=== PATIENT | male | born 1940 | race Caucasian/White ===

== ENCOUNTER 2016-10-10 12:29 | Observation (INO) ==
[2016-10-10] MEDS ORDERED: ASPIRIN 325 MG TABLET PO STA (12:55)
--- NOTE | 2016-10-10 12:59 | EKG Report ---
Stationary ECG Study [facility] ER Test Date: 10/10/2016 12:37:24 PM Pat Name: MAGALI NÚÑEZ Department: Room: Gender: M Study Assistant: : 1940 Requested by: Catalino Rose Order Number: [id number] Reading MD: HANANE ROSE Intervals [place] Rate: 92 P: 169 AL: 175 QRS: 174 QRSD: 155 T: 8 QT: 371 QTc: 421 Interpretive Statements ATRIAL FLUTTTER ABNORMAL RIGHT AXIS DEVIATION NONSPECIFIC INTRAVENTRICULAR CONDUCTION BLOCK Electronically Signed On 10-16-16 10:55:47 CDT by HANANE ROSE [email or web address]
--- NOTE | 2016-10-10 13:15 | Emergency Department Note ---
Arina Cortes Hilary, am scribing for, and in the presence of, Catalino Osborne MD 13: 06. [place] Cortes James D, MD, personally performed the services described in this documentation, ascribed by Regi Santa in my presence, and it is both accurate and complete 315 . Arrival - Arrival Chief Complaint: Chest Pain Stated Complaint: chest pain ED Nursing Triage Note: c/o stabbing pain in lt side of chest around breast. + sob. +productive cough. pt denies pain in triage. pt was dcd from here last sunday for pneumonia. pt had a check up with heart dr about 1100 today Mode of Arrival: Wheelchair Limitations: No Limitations Source: Patient, RN Notes Reviewed - History of Present Illness HPI Narrative: Pt is a 76 y/o male presenting to the ED with c/o stabbing pain on his left side of chest that is now resolved. Pt states the pain lasted about 30-45 min and was non radiating. Pt confirms chronic SOB, cough, chest pain, leg swelling but denies pain, nausea, diaphoresis or abdominal pain. Pt has a PMHx of HTN, DC , Cardia dysrhythmia, CAD, Cardiovascular problems (hypotension), COPD, lung CA , was discharged from hospital 10/04/16 days ago for Pneumonia. No other complaints or problems stated in the ED. Negative PET scan 2 weeks ago, Pt had a check up with his heart Dr about 1100 today. Onset (ago): minute(s) Consistency: now resolved Allergies/Adverse Reactions: Allergies Allergy/AdvReac Type Severity Reaction Status Date / Time budesonide [From Symbicort] Allergy Severe HIVES Verified 09/14/16 06:08 ceftriaxone [From Rocephin] Allergy Severe ANAPHYLAXIS Verified 09/14/16 06:08 Formoterol [From Symbicort] Allergy Severe HIVES Verified 09/14/16 06:08 sulfamethoxazole Allergy Severe HIVES Verified 09/14/16 06:08 [From Bactrim] trimethoprim [From Bactrim] Allergy Severe HIVES Verified 09/14/16 06:08 Home Medications: Home Medications Medication Instructions Recorded Confirmed Type Omeprazole [Prilosec] 20 mg PO BID 03/31/15 10/10/16 History Magnesium Oxide 400 mg PO BID #60 tablet 04/06/15 10/10/16 Rx Metoprolol Succinate 100 mg PO DAILY 02/01/16 10/10/16 History dilTIAZem HCl [Tiazac] 300 mg PO DAILY 02/01/16 10/10/16 History Aspirin EC Tab 81 mg PO DAILY tablet 02/03/16 10/10/16 Rx Clopidogrel [Plavix] 75 mg PO DAILY #30 tablet 02/03/16 10/10/16 Rx Tiotropium Inhalation [Spiriva 18 mcg INH DAILY 02/15/16 10/10/16 History Handihaler] Atorvastatin Calcium 40 mg PO DAILY 05/08/16 10/10/16 History Cholecalciferol (Vitamin D3) 2,000 unit PO DAILY 09/13/16 10/10/16 History [Vitamin D3] Fluticasone Propionate 2 spray BOTH NARES DAILY 09/13/16 10/10/16 History [Fluticasone 50 mcg Nasal [place]] Levothyroxine Tab [Synthroid Tab] 125 mcg PO DAILY 09/13/16 10/10/16 History Multivitamin [Multivitamins] 1 each PO DAILY 09/13/16 10/10/16 History Doxycycline Hyclate 100 mg PO BID #20 capsule 10/04/16 10/10/16 Rx Gabapentin Cap/Tab [Neurontin 600 mg PO TID #90 tablet 10/04/16 10/10/16 Rx Cap/Tab] predniSONE TAB [PredniSONE] 20 mg PO DAILY #7 tablet 10/04/16 10/10/16 Rx rifAMPin [Rifampin] 150 mg PO BID #20 capsule 10/04/16 10/10/16 Rx Review of System - Review of System 12 point system: reviewed and no additional remarkable complaints except as stated - Review of System Constitutional: Absent: diaphoresis, fever Respiratory: Present: cough, respiratory distress (SOB) Cardiovascular: Present: chest pain Gastrointestinal: Absent: abdominal pain Musculoskeletal: Absent: arm pain Medical,Surgical,& Family Hx - Medical History Cardio: History of: Cardiac Dysrhythmia (A FIB), CAD (diffuse small vessel coronary artery disease), Hypertension, DC (02/01/2016), Cardiovascular Problems (Hypotension) No history of: Aneurysm, Congenital Heart Disease, CHF, Pacemaker, PVD, Valvular Heart Disease Neurology: No history of: Brain Aneurysm, Cerebral Hemorrhage, Cerebrovascular Accident , Cerebral Palsy, Dementia, Migraine, Multiple Sclerosis, Parkinson's Disease, Seizures, TIA, Neurologocal Cancer HEENT: History of: Eye Problem (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 LEFT LEG.) Other: History of: Anesthesia Reactions (PT STATES TROUBLE WAKING IN THE PAST.) , Anaphylaxis (ROCEPHIN), Cancer (LUNG), MRSA (RT HAND , SINUS) Comment Only: Miscellaneous Medical Problems (SINUS SURGERY X 3, UVULA SURGERY.) - Surgical History Cardiac Surgeries: Sugical HX of: Cardiac Catheterization (stent x1 DR JASON. LAST VISIT 11/2015. STENT 02/01/2016. DR JASON.) Thoracic Surgeries: Patient denies;: Kidney (Renal Surgery), Lithotripsy, Nephrectomy, Organ Transplant Neurologic Surgeries: Patient denies: Brain Aneurysm, Cerebral Hemorrhage Abdominal Surgeries: Surgical HX of: Colonoscopy Patient denies: Abdominal Surgery Reproductive Surgeries: Patient denies;: Cystoscopy, Genitourinary Surgery, Prostate Surgery Orthopedic Surgeries: Surgical HX of;: Orthopedic Surgery (RT ELBOW SURGERY. RT HAND TENDON SURGERY.) - Family History Family History: Reports;: Family Cancer (MOTHER- BREAST CA AND KIDNEY CA), Family Diabetes (FATHER, BROTHER, SISTER), Family Heart Disease (FATHER), Family Hypertension (FATHER), Family Stroke (FATHER-TIA) - Social History Smoking Status: Former smoker Frequency of Alcohol Use: None Type of Drug Use: None Exam Physical Examination: GENERAL: This is a well-nourished, well-developed male in no apparent distress. VITAL SIGNS: Temperature: 98 Pulse: Respiratory: 24 Blood Pressure: 103/ 77 O2SAT: 99 HEENT: Head is normocephalic and atraumatic. Pupils are equally round and reactive to light. Extraocular movement are intact. Oropharynx is benign with moist mucous membranes. NECK: Neck is soft and supple without tenderness. There are no masses. There is no lymphadenopathy. LUNGS: Lungs are clear to auscultation bilaterally. Chest rises symmetrically. There is no chest wall tenderness. CV: Heart is regular rate and rhythm without murmurs, rubs, or gallops. ABDOMEN:Abdomen is soft, non-tender to palpation. There are no abnormal masses palpated. There is no organomegaly. Bowel sounds are present and active. SKIN: Skin is warm and dry. No rash. EXTREMITIES: Patient has full range of motion without tenderness. There is no pedal edema. NEUROLOGIC: Awake, alert, and oriented x4. Cranial nerves II through XII are grossly intact. There are no motorsensory deficits. PSYCHIATRIC: Normal affect. Normal mood. Vital Signs: Vital Signs Temperature 98.0 F 10/10/16 12:32 Respiratory Rate 22 10/10/16 14:34 Blood Pressure 103/77 10/10/16 12:32 Course - Consultations Consultation #1: Discussed with cardiology. Patient will be admitted to their service. Dr. Ochoa will assume patient's care upon [facility] to the [facility]. Initial orders written for him. Time: 15:41 Results - Labs CBC & BMP: 10/10/16 13:51 10/10/16 13:51 Lab Results: I have reviewed the patients labs Labs: Laboratory Tests 10/10/16 10/10/16 13:51 13:51 WBC 12.5 H RBC 4.43 Hgb 13.9 L Hct 41.9 L Neut % (Auto) 78.1 H Lymph % (Auto) 13.9 L Neut # (Auto) 9.8 H Sodium 137 Potassium 3.5 Chloride 96 L Carbon Dioxide 35 H BUN 40 H Creatinine 1.70 H BUN/Creatinine Ratio 23.00 H Glucose 124 H Total Bilirubin 1.30 H Total Protein 5.5 L Albumin 2.6 L Albumin/Globulin Ratio 0.8 L Laboratory Tests 10/10/16 13:51 Troponin I < 0.015 - EKG EKG results: interpreted by ERMD - Impressions EKG: Atrial flutter with ventricular rate of 92, atrial rate of 300, right bundle branch block, nonspecific ST-T wave changes. - Diagnostic Findings Procedure: Chest x-ray: image reviewed by me (Bullous emphysema with chronic scarring. Residual irregular parenchymal abnormalities noted in the left upper lobe patient with known carcinoma on the lung. Reduced infiltration in both mid to lower lung zones which can be seen with imporving pneumonia.), CT - chest: image reviewed by me (CT chest PA gram: No large pulmonary embolus. Infiltrates in the bases bilaterally.), Ultrasound: report reviewed by me ( Venous Doppler lower extremities: No evidence of DVT.) Disposition Clinical Impression: Atrial flutter, Chest pain, History of lung cancer, Coronary artery disease, History of pneumonia Case discussed with: patient Disposition: Still a Patient Condition: Stable Time of Disposition: 13:16
--- NOTE | 2016-10-10 13:58 | XRay Report ---
XR chest 2V Date: 10/10/2016 12:55 PM History: Chest pain Comparison: 10/04/2016 Technique: PA and lateral chest Findings: The heart remains normal in size with uncoiling of the aorta. Persistent evidence of bullous emphysema with reduced parenchymal findings in both mid to lower lung zones. Smaller right pleural effusion. On the lateral film, residual irregular parenchymal findings noted in the left upper lobe. Stable mediastinum with degenerative changes. Impression: Bullous emphysema with chronic scarring. Residual irregular parenchymal abnormalities noted in the left upper lobe patient with known carcinoma on the lung. Reduced infiltration in both mid to lower lung zones which can be seen with improving pneumonia. PROCEDURE INTERPRETED AT [facility] DEPARTMENT OF RADIOLOGY Final Report Signed by: Dr. Danisha Babin
[2016-10-10 14:03] LABS: Basophils % 0.2 % (0.0-0.8); Eosinophils # 0.2 10*3/uL (0.0-0.87); Eosinophils % 1.5 % (0.00-10.9); Hematocrit 41.9 VOL% (42.0-52.0); Hemoglobin 13.9 GM/DL (14.0-18.0); Immature Granulocytes % 1.5 %; Immature Granulocytes Absolute 0.19 #; Lymphocytes # 1.7 10*3/uL (1.4-4.0); Lymphocytes % 13.9 % (21.2-54.2); Mean Corpuscular HGB Conc 33.2 GM/DL (32-36); Mean Corpuscular Hemoglobin 31 PG (27-34); Mean Corpuscular Volume 94.6 FL (87-102); Mean Platelet Volume 11.1 FL (9.6-12.0); Monocytes # 0.6 10*3/uL (0.11-0.8); Monocytes % 4.8 % (1.7-12.7); Neutrophils # 9.8 10*3/uL (1.4-7.4); Neutrophils % 78.1 % (38.7-73.9); Platelet Count 199 T/CUMM (130-400); Red Blood Count 4.43 MC/CUMM (3.8-5.5); Red Cell Distribution Width 16.5 % (9.3-17.3); White Blood Count 12.5 T/CUMM (4-12)
[2016-10-10] MEDS ORDERED: ASPIRIN 325 MG TABLET ONE (14:18)
[2016-10-10 14:19] LABS: PT Patient Result 11.1 SECS; Partial Thromboplastin Time 26.7 SECS (0-40)
--- NOTE | 2016-10-10 14:20 | Ultrasound Report ---
Exam: Bilateral lower extremity venous Doppler ultrasound Comparison: 05/08/2016 Clinical history: Bilateral lower extremity edema, history of lung cancer Technique: Duplex scan of the lower extremity veins using B-mode/grayscale scaled imaging and Doppler spectral analysis and color flow. Findings: Major venous structures of the lower extremities demonstrate a normal course and caliber. Normal color-flow study and spectral analysis. There is normal compression and augmentation of bilateral common femoral, superficial femoral and popliteal veins. The proximal bilateral greater saphenous veins appear to be patent. Impression: No evidence to suggest deep venous thrombosis within either lower extremity. Ultrasound images were captured and stored. PROCEDURE INTERPRETED AT [facility] DEPARTMENT OF RADIOLOGY Final Report Signed by: Dr. Danisha Babin
[2016-10-10 14:34] LABS: Albumin 2.6 G/DL (3.4-5.0); Bilirubin,Total 1.3 MG/DL (0.2-1.0); Calcium 8.9 MG/DL (8.5-10.1); Osmolality,Calculated 283.8 MOS/KG (273-304); Potassium 3.5 MMOL/L (3.5-5.1); Total Protein 5.5 G/DL (6.4-8.3)
--- NOTE | 2016-10-10 16:11 | CT Report ---
EXAM: CT chest PE study DATE: October 10, 2016 COMPARISON: CT chest with contrast September 29, 2016, PET CT September 25, 2016 REASON: Chest pain, history of lung cancer TECHNIQUE: Axial images of the chest were obtained after administration of 80 cc of Omnipaque 350 intravenous contrast. Coronal/sagittal reformatted images and coronal/sagittal MIP images were also acquired. The study was performed per pulmonary embolism protocol. Total DLP was 395.5 mGy*cm. FINDINGS: Pulmonary arteries: There is no evidence of pulmonary embolism through the segmental pulmonary arteries. Vascular/heart: The ascending thoracic aorta is borderline prominent, measuring 3.9 cm in diameter. However, it appears stable. No definite aortic dissection is seen, but evaluation is limited by poor opacification of the aorta. The heart is upper normal in size. No pericardial effusion is seen. Calcified plaque is noted at the coronary arteries. Lymph nodes: There are calcified mediastinal and hilar lymph nodes. The mediastinal and hilar lymph nodes appear stable. Chest wall: Unremarkable. Lungs: The patient has a history of lung cancer. There are stable irregular opacities within the anterior aspect of the left upper lobe. This has not significantly changed since August 29, 2016 and could represent treated lung cancer in this patient with a history of lung cancer. There are patchy opacities within the right middle lobe, which are not seen on the prior CT of August 29, 2016. This is concerning for pneumonia. There also opacities within the basilar portion of the left lower lobe, which have improved. This could represent atelectasis, scarring and improving pneumonia. Additional mild scattered opacities are seen within both lungs and likely represent atelectasis and scarring. There is severe emphysema. No pneumothorax or pleural effusion is identified. Bones: No acute osseous process is seen. Upper abdomen: There are several left renal cysts, which are similar to before. No acute process is identified within the upper abdomen. IMPRESSION: 1. No evidence of pulmonary embolism. 2. There are again irregular opacities within the anterior aspect of the left upper lobe, which have not significantly changed since August 29, 2016. The patient has a history of lung cancer, and this could represent treated lung cancer. Please see the recent PET/CT for further details. 3. There are patchy opacities within the right middle lobe, which are not seen on the prior CT of August 29, 2016. This likely represents pneumonia. However, follow-up is recommended to confirm resolution. 4. There are mild opacities within the basilar portion of the left lower lobe. These opacities have improved since August 29, 2016. This could represent atelectasis, scarring and improving pneumonia. However, a neoplastic process is difficult to exclude in this region. Follow-up is recommended. 5. Scattered atelectasis and scarring within both lungs and severe emphysema. PROCEDURE INTERPRETED AT [facility] DEPARTMENT OF RADIOLOGY Final Report Signed by: Dr. Jorge Montenegro
--- NOTE | 2016-10-10 16:35 | EKG Report ---
Stationary ECG Study [facility] ER Test Date: 10/10/2016 4:34:23 PM Pat Name: MAGALI NÚÑEZ Department: Room: 277 Gender: M Vat Overhauler: : 1940 Requested by: Catalino Rose Order Number: [id number] Reading MD: HANANE ROSE Intervals [place] Rate: 79 P: 50 NH: 210 QRS: 254 QRSD: 154 T: 28 QT: 385 QTc: 420 Interpretive Statements SINUS RHYTHM WITH PROLONGED NH INTERVAL POSSIBLE LEFT ATRIAL ENLARGEMENT MARKED RIGHT AXIS DEVIATION RIGHT BUNDLE BRANCH BLOCK Electronically Signed On 10-16-16 11:13:34 CDT by HANANE ROSE [id number]
[2016-10-10] MEDS ORDERED: MAGNESIUM SULF RIDER 4 GM in PREMIX 1 EACH IV PRN (16:57)
[2016-10-10] MEDS ORDERED: NITROGLYCERIN SL 0.4 MG TABLET SL PRN (16:57)
[2016-10-10] MEDS ORDERED: NITROGLYCERIN 2% OINT 1 INCH/GM PACK TOP STA (16:57)
[2016-10-10] MEDS ORDERED: MAGNESIUM SULF RIDER 2 GM in PREMIX 1 EACH IV PRN (16:57)
--- NOTE | 2016-10-10 17:02 | Cardiology History & Physical ---
<Shelby Johnson E - Last Filed: 10/10/16 17:15> Assessment and Plan - Time spent with patient Time spent with patient: Greater than 30 minutes (due to assessment, plan, and documentation) (1) Chest pain Status: Acute Assessment and plan: SEE PLAN OF CARE LISTED BELOW. Current Visit: Yes (2) History of pneumonia Status: Acute Assessment and plan: SEE PLAN OF CARE LISTED BELOW. Current Visit: Yes (3) Atrial flutter Status: Acute Assessment and plan: SEE PLAN OF CARE LISTED BELOW. Current Visit: Yes (4) Coronary artery disease Status: Chronic Assessment and plan: SEE PLAN OF CARE LISTED BELOW. Current Visit: Yes (5) History of lung cancer Status: Chronic Assessment and plan: SEE PLAN OF CARE LISTED BELOW. Current Visit: Yes (6) Atrial fibrillation Status: Chronic Assessment and plan: SEE PLAN OF CARE LISTED BELOW. Current Visit: No Qualifiers: Atrial fibrillation type: persistent Qualified Code(s): I48.1 - Persistent atrial fibrillation (7) Chronic obstructive pulmonary disease Status: Chronic Assessment and plan: SEE PLAN OF CARE LISTED BELOW. Current Visit: No (8) Dyslipidemia Status: Chronic Assessment and plan: SEE PLAN OF CARE LISTED BELOW. Current Visit: No (9) Renal insufficiency Status: Chronic Assessment and plan: SEE PLAN OF CARE LISTED BELOW. Current Visit: No (10) Hypothyroidism Status: Chronic Assessment and plan: SEE PLAN OF CARE LISTED BELOW. Current Visit: No History of Present Illness Chief complaint: chest pain History of present illness: NURSE PRACTITIONER PER DIEM: DR. HENDRIX PCP: none PATIENT IS BEING SEE IN THE EMERGENCY ROOM, #11. Mr. Ceron is a 76 year old male with a known history of coronary artery disease, dyslipidemia, hypertension, right bundle branch block, lung cancer, hypothyroidism, and unspecified atrial fibrillation. He is status post NSTEMI 02/02/16 with stent placement to the mid LAD. At the time of his last heart catheterization, he was noted to have an infrarenal abdominal aortic aneurysm measuring 29.6mm in its greatest dimension; he also had a patent stent to the mid circumflex, and ischemic cardiomyopathy with ejection fraction 45%. Mr. Ceron presented to the emergency department shortly after lunch today for complaints of chest pain. He was seen in clinic this morning by Dr. Hendrix and at that time, he was in his usual state of health and denied any recent episodes of chest discomfort. He was just discharged from the hospital last 10/04/16 after being hospitalized for 8 days for treatment of pneumonia. Mr. Ceron tells me that he was sitting in the car waiting on his to finish shopping when he had a sudden onset of left sided chest pain. He describes this as "sharp and stabbing" and lasting approximately 30-45 minutes. It did not radiate. He tells me he has chronic shortness of breath and is on home oxygen but he noted no associated symptoms of palpitations, diaphoresis, nausea, vomiting, dizziness, lightheadedness, or syncope. He tells me the pain subsided considerably prior to arrival at the hospital but has since come and gone a couple of times. He can identify no aggravating or alleviating factors. He denies missing any doses of his aspirin or Plavix. He also reports dizzy spells yesterday, bilateral lower extremity edema, and an occasional productive cough of dark yellow sputum. He bruises easily and his noted to have a large area of ecchymosis over his LLQ. He is currently breathing comfortably on O2 via NBP and denies pain at the time of exam. He tells me he thinks this feels somewhat similar to the pain he had in January prior to his previous stent. Initial troponin was negative with creatinine 1.7. Subsequent troponin was within normal limits. His WBC is elevated at 12.5 after being 10.7 at discharge on 10/04/16. He was initially in atrial flutter on arrival but has since converted to normal sinus rhythm and is noted to have a chronic right bundle branch block with first degree AV block. Dr. Santiago to follow with further plan and addendum. ASSESSMENT/PLAN: 1. CHEST PAIN - Atypical in nature. Describes pain as sharp and stabbing with no significant associated symptoms. Patient has chronic SOB and wears home O2. He reports his breathing did not seem to change much during his chest pain episode. Admit to telemetry unit to rule out myocardial infarction. Patients last cath was January 2016 and he received stent to mLAD. We will keep him NPO after midnight for possible stress test or heart cath in the morning. First 2 sets of troponins have been unremarkable. Will follow trend and make a decision in the morning as to how to proceed. 2. HISTORY OF PNEUMONIA - Continue current therapy. 3. ATRIAL FLUTTER - EKG on admission showed atrial flutter, has since converted to normal sinus rhythm. 4. CORONARY ARTERY DISEASE - He is status post NSTEMI 02/02/16 with stent placement to the mid LAD. At the time of his last heart catheterization, he was noted to have an infrarenal abdominal aortic aneurysm measuring 29.6mm in its greatest dimension; he also had a patent stent to the mid circumflex, and ischemic cardiomyopathy with ejection fraction 45%. 5. HISTORY OF LUNG CANCER - Followed by Dr. Mckinney. He is to follow up with Dr. Mckinney in approximately 3 months. PET scan done September 2016 revealed no obvious evidence of persistent or recurrent malignancy. 6. HISTORY OF ATRIAL FIBRILLATION - Currently in normal sinus rhythm. Will monitor. Has not been chronically anticoagulated. Will need anticoagulation for stroke prevention. Will discuss with Dr. Santiago. 7. COPD - Continue home medications and O2 PRN. Will monitor. 8. DYSLIPIDEMIA - Continue statin. 9. RENAL INSUFFICIENCY - Creatinine 1.7. 10. HYPOTHYROIDISM - Continue synthroid. Home Medications Medication Instructions Recorded Confirmed Type Omeprazole [Prilosec] 20 mg PO BID 03/31/15 10/10/16 History Magnesium Oxide 400 mg PO BID #60 tablet 04/06/15 10/10/16 Rx Metoprolol Succinate 100 mg PO DAILY 02/01/16 10/10/16 History dilTIAZem HCl [Tiazac] 300 mg PO DAILY 02/01/16 10/10/16 History Clopidogrel [Plavix] 75 mg PO DAILY #30 tablet 02/03/16 10/10/16 Rx Tiotropium Inhalation [Spiriva 18 mcg INH DAILY 02/15/16 10/10/16 History Handihaler] Atorvastatin Calcium 40 mg PO DAILY 05/08/16 10/10/16 History Cholecalciferol (Vitamin D3) 2,000 unit PO DAILY 09/13/16 10/10/16 History [Vitamin D3] Fluticasone Propionate 2 spray BOTH NARES DAILY 09/13/16 10/10/16 History [Fluticasone 50 mcg Nasal [place]] Levothyroxine Tab [Synthroid Tab] 125 mcg PO DAILY 09/13/16 10/10/16 History Multivitamin [Multivitamins] 1 each PO DAILY 09/13/16 10/10/16 History Doxycycline Hyclate 100 mg PO BID #20 capsule 10/04/16 10/10/16 Rx Gabapentin Cap/Tab [Neurontin 600 mg PO TID #90 tablet 10/04/16 10/10/16 Rx Cap/Tab] predniSONE TAB [PredniSONE] 20 mg PO DAILY #7 tablet 10/04/16 10/10/16 Rx rifAMPin [Rifampin] 150 mg PO BID #20 capsule 10/04/16 10/10/16 Rx Aspirin EC Tab 81 mg PO BEDTIME 10/10/16 10/10/16 History Allergies Allergy/AdvReac Type Severity Reaction Status Date / Time budesonide [From Symbicort] Allergy Severe HIVES Verified 09/14/16 06:08 ceftriaxone [From Rocephin] Allergy Severe ANAPHYLAXIS Verified 09/14/16 06:08 Formoterol [From Symbicort] Allergy Severe HIVES Verified 09/14/16 06:08 sulfamethoxazole Allergy Severe HIVES Verified 09/14/16 06:08 [From Bactrim] trimethoprim [From Bactrim] Allergy Severe HIVES Verified 09/14/16 06:08 Review of systems: - Constitutional: Present: fatigue, As per HPI. Absent: anorexia, chills, daytime sleepiness, excessive sweating, fever(s), frequent falls, headache(s), increased appetite, lethargy, malaise, night sweats, stops breathing during sleep, weakness, weight gain, weight loss. - EENT Eyes: Present: As per HPI. Absent: blurry vision, diplopia, loss of vision Ears: Present: As per HPI. Absent: decreased hearing, ear discharge, ear pain Nose, mouth and throat: Present: As per HPI. Absent: dysphagia, epistaxis, headache(s), hoarseness, lip swelling, nasal congestion, neck mass, neck pain, sinus pressure, sore throat, throat swelling, tongue swelling, vertigo - Cardiovascular: Present: chest pain at rest, dyspnea, dyspnea on exertion, edema, as per HPI. Absent: chest pain with activity, claudication, diaphoresis , radiating jaw, neck or arm pain, lightheadedness, orthopnea, palpitations, PND - Respiratory: Present: dyspnea, dyspnea on exertion, cough, as per HPI. Absent : hemoptysis, wheezing, snoring, pain on inspiration - Gastrointestinal: Present: constipation, As per HPI. Absent: abdominal pain, bloating, change in bowel habits, diarrhea, heartburn, hematemesis, hematochezia , loose stools, melena, nausea, vomiting - Genitourinary: Present: As per HPI. Absent: difficulty urinating, dysuria, flank pain, hematuria, nocturia, urinary frequency, urinary incontinence - Musculoskeletal: Present: As per HPI. Absent: arthralgias, back pain, joint swelling, limited range of motion, muscle cramps, muscle weakness, myalgias - Neurological: Present: dizziness, As per HPI. Absent: abnormal gait, abnormal speech, behavioral changes, confusion, convulsions, disequilibrium, focal weakness, frequent falls, headache(s), memory loss, numbness, paresthesias, radicular pain, syncope, tremor(s) - Psychiatric: Present: As per HPI. Absent: anxiety, confusion, depression, panic attacks - Endocrine: Present: As per HPI. Absent: cold intolerance, fatigue, heat intolerance, polydipsia, polyphagia - Hematologic/Lymphatic: Present: easy bleeding, easy bruising, As per HPI. 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 LEFT LEG.) Other: History of: Anesthesia Reactions (PT STATES TROUBLE WAKING IN THE PAST.) , Anaphylaxis (ROCEPHIN), Cancer (LUNG), MRSA (RT HAND , SINUS) Comment Only: Miscellaneous Medical Problems (SINUS SURGERY X 3, UVULA SURGERY.) - Surgical History Cardiac Surgeries: Sugical HX of: Cardiac Catheterization (stent x1 DR HENDRIX. LAST VISIT 11/2015. STENT 02/01/2016. DR HENDRIX.) Thoracic Surgeries: Patient denies;: Kidney (Renal Surgery), Lithotripsy, Nephrectomy, Organ Transplant Neurologic Surgeries: Patient denies: Brain Aneurysm, Cerebral Hemorrhage Abdominal Surgeries: Surgical HX of: Colonoscopy Patient denies: Abdominal Surgery Reproductive Surgeries: Patient denies;: Cystoscopy, Genitourinary Surgery, Prostate Surgery Orthopedic Surgeries: Surgical HX of;: Orthopedic Surgery (RT ELBOW SURGERY. RT HAND TENDON SURGERY.) - Family History Family History: Reports;: Family Cancer (MOTHER- BREAST CA AND KIDNEY CA), Family Diabetes (FATHER, BROTHER, SISTER), Family Heart Disease (FATHER), Family Hypertension (FATHER), Family Stroke (FATHER-TIA) - Social History Smoking Status: Former smoker Frequency of Alcohol Use: None Type of Drug Use: None Marital Status: Lives With:: Spouse Functional capacity: independent ambulation Cardiology Physical Exam - Constitutional Vitals: Vital Signs Temp Pulse Resp BP Pulse Ox 97.5 F L 75 22 113/76 100 10/10/16 16:26 10/10/16 16:26 10/10/16 16:26 10/10/16 16:26 10/10/16 16:26 Exam: General appearance: Pleasant and cooperative. Overweight, no acute distress. - Head Head exam: Present: normal inspection, normocephalic, atraumatic. Absent: hematoma, laceration - Eye Eye exam: Present: EOMI. Absent: conjunctival injection, nystagmus, periorbital swelling, scleral icterus, laceration to eyelids - ENT ENT exam: Present: normal exam, normal external ear exam - Neck Neck exam: Present: normal inspection. Absent: lymphadenopathy, meningismus, tenderness, thyromegaly - Respiratory Respiratory exam: Present: clear to auscultation bilaterally. Absent: accessory muscle use, chest wall tenderness - Cardiovascular Cardiovascular exam: Present: regular rate and rhythm. Absent: carotid bruit, gallop, JVD, rubs, murmur - GI/Abdominal GI/Abdominal exam: Present: normal bowel sounds, soft. Absent: distended, firm , guarding, hernia, mass, tenderness, rebound. - Extremities Exam Extremities exam: Present: normal inspection, normal capillary refill. Upper extremity pulses 2+. Lower extremity pulses 2+. 2-3+ pitting edema to BLE. Absent: calf tenderness -Musculoskeletal Exam Musculoskeletal: Present: No Fluid Collection, No Pain, Normal Range of Motion - Back Exam Back exam: Present: normal inspection. Absent: muscle spasm, vertebral tenderness - Neurological Exam Neurological exam: Present: alert, oriented X3, grossly intact without resting or essential tremor - Psychiatric Psychiatric exam: Present: normal affect, normal mood - Skin Skin exam: Present: normal color, warm, dry, intact, ecchymosis to LLQ. Absent : cyanosis, diaphoretic, rash, urticaria Result/EKG - Labs CBC & BMP: 10/10/16 13:51 10/10/16 13:51 Lab Results: I have reviewed the past 24 hour labs - EKG EKG results: interpreted by me, sinus rhythm (right bundle branch block with 1st degree AVB ) <Nikhil Santiago - Last Filed: 10/10/16 17:38> History of Present Illness History of present illness: Mr. Ceron is a 76 year old male Cardiology Physical Exam - Constitutional Vitals: Vital Signs Temp Pulse Resp BP Pulse Ox 97.1 F L 76 18 125/77 100 10/10/16 16:59 10/10/16 16:59 10/10/16 16:59 10/10/16 16:59 10/10/16 16:59 Intake and Output 10/10/16 10/10/16 10/10/16 07:59 15:59 23:59 Other: Weight 87.09 kg Patient Weight 10/10/16 23:59 Weight 87.09 kg Result/EKG - Labs CBC & BMP: 10/10/16 13:51 10/10/16 13:51
[2016-10-10] MEDS: ENOXAPARIN 100 MG/ML SYRINGE SUBCUT SCH (17:16)
[2016-10-10 18:49] LABS: Troponin I Only 0.015 NG/ML (0.00-0.045)
[2016-10-10] MEDS: IPRATROPIUM 500 MCG/2.5 ML NEB RESP TX SCH (20:45)
[2016-10-10] MEDS ORDERED: RIFAMPIN 150 MG PO SCH (21:00)
[2016-10-10] MEDS: DOXYCYCLINE HYCLATE 100 MG CAPSULE PO SCH (21:55)
[2016-10-10] MEDS: PANTOPRAZOLE 40 MG TABLET PO SCH (21:55)
[2016-10-10] MEDS: GABAPENTIN 600 MG TABLET PO SCH (21:55)
[2016-10-10] MEDS: AMIODARONE 200 MG TABLET PO SCH (21:56)
[2016-10-10] MEDS: MAGNESIUM OXIDE 400 MG TABLET PO SCH (21:56)
[2016-10-11 01:11] LABS: Troponin I Only 0.016 NG/ML (0.00-0.045)
[2016-10-11 04:51] LABS: Basophils % 0.1 % (0.0-0.8); Eosinophils # 0.1 10*3/uL (0.0-0.87); Eosinophils % 0.7 % (0.00-10.9); Hematocrit 35.5 VOL% (42.0-52.0); Hemoglobin 11.9 GM/DL (14.0-18.0); Immature Granulocytes % 1.5 %; Immature Granulocytes Absolute 0.13 #; Lymphocytes # 1.4 10*3/uL (1.4-4.0); Lymphocytes % 16.8 % (21.2-54.2); Mean Corpuscular HGB Conc 33.5 GM/DL (32-36); Mean Corpuscular Hemoglobin 32 PG (27-34); Mean Corpuscular Volume 94.9 FL (87-102); Mean Platelet Volume 11.1 FL (9.6-12.0); Monocytes # 0.5 10*3/uL (0.11-0.8); Monocytes % 5.7 % (1.7-12.7); Neutrophils # 6.3 10*3/uL (1.4-7.4); Neutrophils % 75.2 % (38.7-73.9); Platelet Count 159 T/CUMM (130-400); Red Blood Count 3.74 MC/CUMM (3.8-5.5); Red Cell Distribution Width 16.6 % (9.3-17.3); White Blood Count 8.4 T/CUMM (4-12)
[2016-10-11] MEDS: ENOXAPARIN 100 MG/ML SYRINGE SUBCUT SCH (05:09)
[2016-10-11 05:42] LABS: Risk Ratio 2.69; VLDL CHOLESTEROL 22.8 MG/DL
[2016-10-11 05:50] LABS: Albumin 2.2 G/DL (3.4-5.0); Bilirubin,Total 0.8 MG/DL (0.2-1.0); Calcium 8.3 MG/DL (8.5-10.1); Free T4 (Free Thyroxine) 0.9 NG/DL (0.76-1.46); Osmolality,Calculated 283.4 MOS/KG (273-304); Potassium 4.1 MMOL/L (3.5-5.1); Thyroid Stimulating Hormone 2.05 uIU/ml (0.358-3.74); Total Protein 4.5 G/DL (6.4-8.3)
[2016-10-11] MEDS ORDERED: IPRATROPIUM 500 MCG/2.5 ML NEB RESP TX SCH (07:00)
[2016-10-11] MEDS: IPRATROPIUM 500 MCG/2.5 ML NEB RESP TX SCH ×2 (07:29→11:34)
[2016-10-11 07:45] VITALS: BP 144/70
[2016-10-11] MEDS ORDERED: LEVOTHYROXINE 125 MCG TABLET PO SCH (09:00)
[2016-10-11] MEDS ORDERED: ATORVASTATIN 80 MG TABLET PO SCH (09:00)
[2016-10-11] MEDS ORDERED: ASPIRIN 325 MG TABLET PO SCH (09:00)
[2016-10-11] MEDS ORDERED: CLOPIDOGREL 75 MG TABLET PO SCH (09:00)
[2016-10-11] MEDS ORDERED: predniSONE 20 MG TABLET PO SCH (09:00)
[2016-10-11] MEDS ORDERED: FLUTICASONE 50 MCG NASAL SPRAY 16 GM BOTTLE BOTH NARES SCH (09:00)
[2016-10-11] MEDS ORDERED: DILTIAZEM CD 300 MG CAPSULE PO SCH (09:00)
[2016-10-11] MEDS ORDERED: METOPROLOL SUCCINATE XL 100 MG TABLET PO SCH (09:00)
[2016-10-11] MEDS: CHOLECALCIFEROL 1,000 UNIT TABLET PO SCH ×2 (09:35→10:03)
[2016-10-11] MEDS: MULTIVITAMIN (CENTRUM) TABLET PO SCH ×2 (09:36→10:03)
[2016-10-11] MEDS: DOXYCYCLINE HYCLATE 100 MG CAPSULE PO SCH (09:36)
[2016-10-11] MEDS: AMIODARONE 200 MG TABLET PO SCH (09:36)
[2016-10-11] MEDS: MAGNESIUM OXIDE 400 MG TABLET PO SCH (09:36)
[2016-10-11] MEDS: GABAPENTIN 600 MG TABLET PO SCH (09:37)
[2016-10-11] MEDS: APIXABAN 5 MG TABLET PO SCH ×3 (09:39→10:03)
[2016-10-11] MEDS: PANTOPRAZOLE 40 MG TABLET PO SCH (09:40)
--- NOTE | 2016-10-11 10:43 | Discharge Summary ---
<Shelby Johnson Tonya - Last Filed: 10/11/16 11:14> Hospital Course - Hospital Course Hospital Course: CREDIT RISK ANALYST: DR. HENDRIX PCP: none Mr. Ceron is a 76 year old male with a known history of coronary artery disease, dyslipidemia, hypertension, right bundle branch block, lung cancer, hypothyroidism, and unspecified atrial fibrillation. He is status post NSTEMI 02/02/16 with stent placement to the mid LAD. At the time of his last heart catheterization, he was noted to have an infrarenal abdominal aortic aneurysm measuring 29.6mm in its greatest dimension; he also had a patent stent to the mid circumflex, and ischemic cardiomyopathy with ejection fraction 45%. He presented to the emergency room yesterday afternoon for complaints of chest pain. He was just discharged last Sunday after being hospitalized for 8 days for treatment of pneumonia. His pain was atypical in nature and he described it as sharp and stabbing. He had no radiation or associated symptoms. He does have some chronic shortness of breath. He has had 3 sets of negative troponins and no acute EKG changes. He has been noted to have recurrent atrial flutter/fibrillation. He had atrial flutter upon arrival but is now in normal sinus rhythm. We have discontinued his aspirin and started him on Eliquis 5 mg p.o. twice daily in addition to his Plavix to reduce his risk of cardioembolic events. He has also had no recent bleeding but may have had remote GI bleed. TSH and free T4 are normal. He was also started on amiodarone to try and prevent recurrence of his atrial flutter/fibrillation. These changes have been explained to the patient. He has had no recurrent episodes of chest discomfort. He declines stress testing at this time and is very anxious to be discharged home. At this time, he is able to be discharged to follow-up with Dr. Hendrix within 1 week with a CMP, CBC, EKG. At the time of discharge, his vital signs are stable. - Time spent with patient Time with patient DS: Greater than 30 minutes (Due to discussion with patient about further evaluation, assessment, plan, and documentation.) Diagnosis - Discharge Diagnosis (1) Chest pain Status: Resolved (2) History of pneumonia Status: Acute (3) Atrial flutter Status: Acute (4) Coronary artery disease Status: Chronic (5) History of lung cancer Status: Chronic (6) Atrial fibrillation Status: Chronic (7) Chronic obstructive pulmonary disease Status: Chronic (8) Dyslipidemia Status: Chronic (9) Renal insufficiency Status: Chronic (10) Hypothyroidism Status: Chronic Specialty Discharge - Follow Up or Referrals Follow up with: Johnny Hendrix MD [Physician] - 10/24/16 3:30 pm (Be there at 3:00 p.m. for lab work. ) Discharge Plan - Discharge Data Disposition: Disch To Home/Self Care Condition at Discharge: Stable Discharge Diet: heart healthy Activity: resume usual activities as tolerated Hygiene: no restrictions Weight Bearing at Discharge: full weight bearing Contact your physician if you experience:: fever over 101, Difficulty voiding, Redness or swelling, Nausea/Vomiting, Shortness of breath, Bleeding, pain uncontrolled by pain medications - Discharge Medications New Apixaban [Eliquis] 5 mg PO BID #60 tablet Amiodarone Tab [Cordarone Tab] 200 mg PO BID #60 tablet Continue Omeprazole [Prilosec] 20 mg PO BID Magnesium Oxide 400 mg PO BID #60 tablet dilTIAZem HCl [Tiazac] 300 mg PO DAILY Metoprolol Succinate 100 mg PO DAILY Clopidogrel [Plavix] 75 mg PO DAILY #30 tablet Tiotropium Inhalation [Spiriva Handihaler] 18 mcg INH DAILY Atorvastatin Calcium 40 mg PO DAILY Doxycycline Hyclate 100 mg PO BID #20 capsule Gabapentin Cap/Tab [Neurontin Cap/Tab] 600 mg PO TID #90 tablet predniSONE TAB [PredniSONE] 20 mg PO DAILY #7 tablet Levothyroxine Tab [Synthroid Tab] 125 mcg PO DAILY Fluticasone Propionate [Fluticasone 50 mcg Nasal [place]] 2 spray BOTH NARES DAILY Cholecalciferol (Vitamin D3) [Vitamin D3] 2,000 unit PO DAILY Multivitamin [Multivitamins] 1 each PO DAILY rifAMPin [Rifampin] 150 mg PO BID #20 capsule Discontinued Aspirin EC Tab 81 mg PO BEDTIME - Follow Up or Referral Follow Up: Johnny Hendrix MD [Physician] - 10/24/16 3:30 pm (Be there at 3:00 p.m. for lab work. ) - Forms/Instructions Instructions: Amiodarone (By mouth), Apixaban (By mouth) Exam - Constitutional Vitals: Period Temp Pulse Resp BP Sys/[place] Pulse Ox Last 24 Hr 97 F-98.1 F 69-81 17-22 113-144/67-78 95-100 Exam: General appearance: Pleasant and cooperative. Overweight, no acute distress. - Head Head exam: Present: normal inspection, normocephalic, atraumatic. Absent: hematoma, laceration - Eye Eye exam: Present: EOMI. Absent: conjunctival injection, nystagmus, periorbital swelling, scleral icterus, laceration to eyelids - ENT ENT exam: Present: normal exam, normal external ear exam - Neck Neck exam: Present: normal inspection. Absent: lymphadenopathy, meningismus, tenderness, thyromegaly - Respiratory Respiratory exam: Present: clear to auscultation bilaterally. Absent: accessory muscle use, chest wall tenderness - Cardiovascular Cardiovascular exam: Present: regular rate and rhythm. Absent: carotid bruit, gallop, JVD, rubs, murmur - GI/Abdominal GI/Abdominal exam: Present: normal bowel sounds, soft. Absent: distended, firm , guarding, hernia, mass, tenderness, rebound. - Extremities Exam Extremities exam: Present: normal inspection, normal capillary refill. Upper extremity pulses 2+. Lower extremity pulses 2+. 2-3+ pitting edema to BLE. Absent: calf tenderness -Musculoskeletal Exam Musculoskeletal: Present: No Fluid Collection, No Pain, Normal Range of Motion - Back Exam Back exam: Present: normal inspection. Absent: muscle spasm, vertebral tenderness - Neurological Exam Neurological exam: Present: alert, oriented X3, grossly intact without resting or essential tremor - Psychiatric Psychiatric exam: Present: normal affect, normal mood - Skin Skin exam: Present: normal color, warm, dry, intact, ecchymosis to LLQ. Absent : cyanosis, diaphoretic, rash, urticaria Discharge Results Labs on day of discharge: Labs from last 24 hours 10/11/16 10/11/16 10/11/16 04:37 04:37 04:37 WBC 8.4 D RBC 3.74 L Hgb 11.9 L D Hct 35.5 L MCV 94.9 MCH 32 MCHC 33.5 RDW 16.6 Plt Count 159 D MPV 11.1 Neut % (Auto) 75.2 H Lymph % (Auto) 16.8 L Grand % (Auto) 5.7 Eos % (Auto) 0.7 Baso % (Auto) 0.1 Neut # (Auto) 6.3 Lymph # (Auto) 1.4 Grand # (Auto) 0.5 Eos # (Auto) 0.1 Baso # (Auto) 0.0 Immature Gran % 1.5 Nucleated RBC % 0.0 Immature Gran # 0.13 Nucleated RBCs # 0.00 Sodium 140 Potassium 4.1 Chloride 99 Carbon Dioxide 35 H Anion Gap 10.1 BUN 30 H D Creatinine 1.40 H GFR Calculation 58 BUN/Creatinine Ratio 21.00 H Glucose 79 Calculated Osmolality 283.4 Calcium 8.3 L Total Bilirubin 0.80 AST 23 ALT 25 Alkaline Phosphatase 83 Total Creatine Kinase CK-MB (CK-2) Troponin I Total Protein 4.5 L Albumin 2.2 L Globulin 2.3 Albumin/Globulin Ratio 0.9 L Triglycerides 114 Cholesterol 121 LDL Cholesterol 59.0 VLDL Cholesterol 22.8 HDL Cholesterol 45 Heart Disease Risk Ratio 2.69 Free T4 0.90 TSH 3rd Generation 2.050 10/11/16 10/10/16 00:10 18:11 WBC RBC Hgb Hct MCV MCH MCHC RDW Plt Count MPV Neut % (Auto) Lymph % (Auto) Grand % (Auto) Eos % (Auto) Baso % (Auto) Neut # (Auto) Lymph # (Auto) Grand # (Auto) Eos # (Auto) Baso # (Auto) Immature Gran % Nucleated RBC % Immature Gran # Nucleated RBCs # Sodium Potassium Chloride Carbon Dioxide Anion Gap BUN Creatinine GFR Calculation BUN/Creatinine Ratio Glucose Calculated Osmolality Calcium Total Bilirubin AST ALT Alkaline Phosphatase Total Creatine Kinase 36 L D 48 CK-MB (CK-2) 2.0 2.2 Troponin I 0.016 0.015 Total Protein Albumin Globulin Albumin/Globulin Ratio Triglycerides Cholesterol LDL Cholesterol VLDL Cholesterol HDL Cholesterol Heart Disease Risk Ratio Free T4 TSH 3rd Generation DS: Provider Date of admission: 10/10/16 15:33 Primary care physician: Shree Fernández MD Attending physician on admission: Chandler Garces Discharging clinician: MARLI Milner Expected date of discharge: 10/11/16 <Kasi Ochoa - Last Filed: 10/11/16 14:05> Hospital Course - Hospital Course Hospital Course: Patient is personally interviewed and examined by me this morning. The chart was reviewed. I discussed this case with Shelby Johnson FORENSIC CHEMIST. I agree with the assessment and evaluation planned. The patient's symptomatology certainly does not seem to be cardiac. His ECGs and cardiac enzymes unremarkable. Lungs these findings it is unlikely his symptoms are cardiac in nature. He refuses to do a cardiac perfusion study which I don't necessarily notice needed. Certainly his symptoms are not such that he needs cardiac catheterization. He will be discharged which he is eager to do so. He agrees to return though if he has further symptomatology. Patient is thus discharged with outpatient follow-up.
== END 2016-10-11 11:42 | disposition home or self-care (01) ==
LOC: N.ED 12:29 → N.EDINP 12:29 → N.TELES 15:51
PROVIDERS: ADMIT Internal Medicine Cardiovascular Disease; ATTEND Internal Medicine Cardiovascular Disease

== ENCOUNTER 2018-12-20 14:02 | Inpatient (IN) ==
[2018-12-20] MEDS ORDERED: ONDANSETRON 4 MG/2 ML VIAL ONE (14:17)
[2018-12-20] MEDS ORDERED: ONDANSETRON 4 MG/2 ML VIAL IV STA (14:17)
[2018-12-20] MEDS ORDERED: MORPHINE 4 MG/1 ML VIAL IV PRN (15:55)
[2018-12-20] MEDS ORDERED: ACETAMINOPHEN 325 MG TABLET PO PRN (15:55)
[2018-12-20] MEDS ORDERED: ALBUTEROL/IPRATROPIUM 3 ML NEB RESP TX PRN (15:55)
[2018-12-20] MEDS ORDERED: BISACODYL 5 MG TABLET PO PRN (15:55)
[2018-12-20] MEDS: LACTATED RINGERS 1,000 ML IV SCH (18:48)
[2018-12-20] MEDS: LEVOFLOXACIN INJ 750 MG in PREMIX 1 EACH IV SCH (18:48)
[2018-12-20] MEDS: ALBUTEROL/IPRATROPIUM 3 ML NEB RESP TX SCH (19:31)
[2018-12-20] MEDS ORDERED: LACTATED RINGERS 1,000 ML IV ONE (20:00)
[2018-12-20 20:31] LABS: Basophils # 0.1 10*3/uL (0.0-0.2); Basophils % 1.5 % (0.0-0.8); Eosinophils # 0.2 10*3/uL (0.0-0.87); Eosinophils % 2.7 % (0.00-10.9); Hematocrit 40.1 VOL% (42.0-52.0); Hemoglobin 12.9 GM/DL (14.0-18.0); Immature Granulocytes % 0.4 %; Immature Granulocytes Absolute 0.03 #; Lymphocytes # 3.1 10*3/uL (1.4-4.0); Lymphocytes % 46.3 % (21.2-54.2); Mean Corpuscular HGB Conc 32.2 GM/DL (32-36); Mean Corpuscular Volume 99.3 FL (87-102); Mean Platelet Volume 10.6 FL (9.6-12.0); Monocytes % 8.9 % (1.7-12.7); Neutrophils % 40.2 % (38.7-73.9); Platelet Count 257 T/CUMM (130-400); Red Blood Count 4.04 MC/CUMM (3.8-5.5); Red Cell Distribution Width 13.7 % (9.3-17.3); White Blood Count 6.8 T/CUMM (4-12)
[2018-12-20 20:50] LABS: Albumin 3.6 G/DL (3.4-5.0); Bilirubin,Total 2.5 MG/DL (0.2-1.0); Calcium 9.9 MG/DL (8.5-10.1); Osmolality,Calculated 288.8 MOS/KG (273-304)
[2018-12-20] MEDS: ALUMINUM/MAGNES/SIMETH MAX STR 30 ML UDCUP PO PRN (22:32)
[2018-12-21] MEDS: ALBUTEROL/IPRATROPIUM 3 ML NEB RESP TX SCH ×4 (00:55→19:51)
[2018-12-21 02:58] LABS: Apearance,Urine CLEAR (Clear); Bilirubin,Urine Negative (Negative); Blood, Urine Negative (Negative); Glucose,Urine (UA) Negative (Negative); Hyaline Casts,Urine 3 /LPF (0-3); Ketones,Urine Negative (Negative); Mucus,Urine Occasional /LPF (Occasional); Nitrite,Urine Negative (Negative); Protein,Urine 30 MG/DL; RBC,Urine 3 /HPF (0-4); Sperm,Urine Occasional /HPF (Negative); Urine Color Amber (Yellow); Urine Specific Gravity 1.026 (1.001-1.035); WBC,Urine 7 /HPF (0-6)
[2018-12-21 04:59] LABS: Basophils % 0.3 % (0.0-0.8); Eosinophils # 0.5 10*3/uL (0.0-0.87); Eosinophils % 4.8 % (0.00-10.9); Hematocrit 34.5 VOL% (42.0-52.0); Hemoglobin 11.5 GM/DL (14.0-18.0); Immature Granulocytes % 0.5 %; Immature Granulocytes Absolute 0.05 #; Lymphocytes # 1.5 10*3/uL (1.4-4.0); Lymphocytes % 15.3 % (21.2-54.2); Mean Corpuscular HGB Conc 33.3 GM/DL (32-36); Mean Corpuscular Volume 104.9 FL (87-102); Mean Platelet Volume 11.4 FL (9.6-12.0); Monocytes % 6.3 % (1.7-12.7); Neutrophils % 72.8 % (38.7-73.9); Platelet Count 167 T/CUMM (130-400); Red Blood Count 3.29 MC/CUMM (3.8-5.5); Red Cell Distribution Width 13.4 % (9.3-17.3); White Blood Count 9.8 T/CUMM (4-12)
[2018-12-21 05:29] LABS: Albumin 2.4 G/DL (3.4-5.0); Calcium 8.4 MG/DL (8.5-10.1); Osmolality,Calculated 284.3 MOS/KG (273-304); Total Protein 6.1 G/DL (6.4-8.3)
[2018-12-21] MEDS: ONDANSETRON 4 MG/2 ML VIAL IV PRN ×2 (07:28→16:50)
[2018-12-21] MEDS: ENOXAPARIN 40 MG/0.4 ML SYRINGE SUBCUT SCH (09:40)
[2018-12-21] MEDS: PANTOPRAZOLE 40 MG TABLET PO SCH (09:40)
[2018-12-21] MEDS: ALUMINUM/MAGNES/SIMETH MAX STR 30 ML UDCUP PO PRN ×2 (10:33→20:53)
[2018-12-21] MEDS: LACTATED RINGERS 1,000 ML IV SCH (11:22)
[2018-12-21] MEDS: LEVOFLOXACIN INJ 750 MG in PREMIX 1 EACH IV SCH (17:24)
[2018-12-22] MEDS: LACTATED RINGERS 1,000 ML IV SCH ×2 (00:15→13:35)
[2018-12-22] MEDS: ALBUTEROL/IPRATROPIUM 3 ML NEB RESP TX SCH ×4 (00:50→19:09)
[2018-12-22] MEDS: ALUMINUM/MAGNES/SIMETH MAX STR 30 ML UDCUP PO PRN ×2 (02:25→21:49)
[2018-12-22 04:24] LABS: Basophils % 0.2 % (0.0-0.8); Eosinophils # 0.3 10*3/uL (0.0-0.87); Eosinophils % 3.4 % (0.00-10.9); Hematocrit 31.5 VOL% (42.0-52.0); Hemoglobin 10.5 GM/DL (14.0-18.0); Immature Granulocytes % 0.3 %; Immature Granulocytes Absolute 0.03 #; Lymphocytes # 1.1 10*3/uL (1.4-4.0); Lymphocytes % 12.5 % (21.2-54.2); Mean Corpuscular HGB Conc 33.3 GM/DL (32-36); Mean Corpuscular Volume 104.3 FL (87-102); Mean Platelet Volume 10.9 FL (9.6-12.0); Monocytes % 8.4 % (1.7-12.7); Neutrophils % 75.2 % (38.7-73.9); Platelet Count 148 T/CUMM (130-400); Red Blood Count 3.02 MC/CUMM (3.8-5.5); Red Cell Distribution Width 13.2 % (9.3-17.3); White Blood Count 8.7 T/CUMM (4-12)
[2018-12-22 04:43] LABS: Albumin 2.6 G/DL (3.4-5.0); Calcium 8.5 MG/DL (8.5-10.1); Osmolality,Calculated 277.5 MOS/KG (273-304); Total Protein 5.8 G/DL (6.4-8.3)
[2018-12-22] MEDS: ONDANSETRON 4 MG/2 ML VIAL IV PRN ×2 (06:15→21:50)
[2018-12-22] MEDS: ENOXAPARIN 40 MG/0.4 ML SYRINGE SUBCUT SCH (08:17)
[2018-12-22] MEDS: PANTOPRAZOLE 40 MG TABLET PO SCH ×2 (08:17→21:49)
[2018-12-22] MEDS: METOPROLOL SUCCINATE XL 50 MG TABLET PO SCH (09:30)
[2018-12-22] MEDS ORDERED: PROMETHAZINE 25 MG/1 ML VIAL IM PRN (09:47)
[2018-12-22] MEDS ORDERED: FUROSEMIDE 20 MG TABLET PO PRN (11:25)
[2018-12-22] MEDS ORDERED: NITROGLYCERIN SL 0.4 MG TABLET SL PRN (11:25)
[2018-12-22] MEDS ORDERED: POLYETHYLENE GLYCOL POWDER 17 GM PACK PO PRN (11:25)
[2018-12-22] MEDS ORDERED: ALBUTEROL 2.5 MG/3 ML NEB RESP TX PRN (13:00)
[2018-12-22] MEDS ORDERED: IPRATROPIUM 500 MCG/2.5 ML NEB RESP TX SCH ×2 (15:00→19:00)
[2018-12-22] MEDS: GABAPENTIN 600 MG TABLET PO SCH ×2 (15:12→21:49)
[2018-12-22] MEDS: MORPHINE 4 MG/1 ML VIAL IV PRN ×2 (16:05→21:44)
[2018-12-22] MEDS: LEVOFLOXACIN INJ 750 MG in PREMIX 1 EACH IV SCH (17:16)
[2018-12-22] MEDS: MAGNESIUM OXIDE 400 MG TABLET PO SCH (21:49)
[2018-12-23] MEDS: ALBUTEROL/IPRATROPIUM 3 ML NEB RESP TX SCH ×4 (00:13→19:13)
[2018-12-23 05:34] LABS: Basophils % 0.4 % (0.0-0.8); Eosinophils # 0.4 10*3/uL (0.0-0.87); Eosinophils % 6.1 % (0.00-10.9); Hematocrit 34.8 VOL% (42.0-52.0); Hemoglobin 11.3 GM/DL (14.0-18.0); Immature Granulocytes % 0.4 %; Immature Granulocytes Absolute 0.03 #; Lymphocytes % 14.5 % (21.2-54.2); Mean Corpuscular HGB Conc 32.5 GM/DL (32-36); Mean Corpuscular Volume 105.8 FL (87-102); Mean Platelet Volume 11.1 FL (9.6-12.0); Monocytes % 8.7 % (1.7-12.7); Neutrophils % 69.9 % (38.7-73.9); Platelet Count 149 T/CUMM (130-400); Red Blood Count 3.29 MC/CUMM (3.8-5.5); Red Cell Distribution Width 13.1 % (9.3-17.3); White Blood Count 6.7 T/CUMM (4-12)
[2018-12-23] MEDS: LACTATED RINGERS 1,000 ML IV SCH ×2 (05:45→20:57)
[2018-12-23] MEDS: LEVOTHYROXINE 112 MCG TABLET PO SCH (05:45)
[2018-12-23 06:03] LABS: Albumin 2.5 G/DL (3.4-5.0); Calcium 8.9 MG/DL (8.5-10.1); Osmolality,Calculated 274.5 MOS/KG (273-304); Total Protein 5.9 G/DL (6.4-8.3)
[2018-12-23] MEDS: PANTOPRAZOLE 40 MG TABLET PO SCH ×3 (09:03→20:57)
[2018-12-23] MEDS: FERROUS SULFATE 325 MG TABLET PO SCH (09:03)
[2018-12-23] MEDS: MULTIVITAMIN (CENTRUM) TABLET PO SCH (09:03)
[2018-12-23] MEDS: ATORVASTATIN 40 MG TABLET PO SCH (09:03)
[2018-12-23] MEDS: ENOXAPARIN 40 MG/0.4 ML SYRINGE SUBCUT SCH (09:04)
[2018-12-23] MEDS: MAGNESIUM OXIDE 400 MG TABLET PO SCH ×2 (09:04→20:57)
[2018-12-23] MEDS: CHOLECALCIFEROL 1,000 UNIT TABLET PO SCH (09:04)
[2018-12-23] MEDS: GABAPENTIN 600 MG TABLET PO SCH ×3 (09:04→20:57)
[2018-12-23] MEDS: METOPROLOL SUCCINATE XL 50 MG TABLET PO SCH (09:05)
[2018-12-23] MEDS: MORPHINE 4 MG/1 ML VIAL IV PRN (10:44)
[2018-12-23] MEDS: FLUTICASONE 50 MCG NASAL SPRAY 16 GM BOTTLE BOTH NARES SCH (10:50)
[2018-12-23] MEDS: LEVOFLOXACIN INJ 750 MG in PREMIX 1 EACH IV SCH (17:25)
[2018-12-24] MEDS: ALBUTEROL/IPRATROPIUM 3 ML NEB RESP TX SCH ×4 (00:08→19:06)
[2018-12-24] MEDS: LEVOTHYROXINE 112 MCG TABLET PO SCH (05:31)
[2018-12-24 05:57] LABS: Basophils % 0.4 % (0.0-0.8); Eosinophils # 0.4 10*3/uL (0.0-0.87); Eosinophils % 5.8 % (0.00-10.9); Hematocrit 38.7 VOL% (42.0-52.0); Hemoglobin 12.6 GM/DL (14.0-18.0); Immature Granulocytes % 0.6 %; Immature Granulocytes Absolute 0.04 #; Lymphocytes # 1.1 10*3/uL (1.4-4.0); Lymphocytes % 15.9 % (21.2-54.2); Mean Corpuscular HGB Conc 32.6 GM/DL (32-36); Mean Corpuscular Volume 105.2 FL (87-102); Mean Platelet Volume 11.3 FL (9.6-12.0); Monocytes % 8.8 % (1.7-12.7); Neutrophils % 68.5 % (38.7-73.9); Platelet Count 165 T/CUMM (130-400); Red Blood Count 3.68 MC/CUMM (3.8-5.5); Red Cell Distribution Width 13.3 % (9.3-17.3); White Blood Count 6.9 T/CUMM (4-12)
[2018-12-24 06:15] LABS: PT Patient Result 11.2 SECS
[2018-12-24] MEDS: ATORVASTATIN 40 MG TABLET PO SCH (07:59)
[2018-12-24] MEDS: FERROUS SULFATE 325 MG TABLET PO SCH (07:59)
[2018-12-24] MEDS: MULTIVITAMIN (CENTRUM) TABLET PO SCH (07:59)
[2018-12-24] MEDS: MAGNESIUM OXIDE 400 MG TABLET PO SCH ×2 (07:59→20:55)
[2018-12-24] MEDS ORDERED: INDOMETHACIN SUPP 50 MG SUPP RECTAL ONE (08:00)
[2018-12-24] MEDS: GABAPENTIN 600 MG TABLET PO SCH ×3 (08:00→21:00)
[2018-12-24] MEDS: CHOLECALCIFEROL 1,000 UNIT TABLET PO SCH (08:00)
[2018-12-24] MEDS: PANTOPRAZOLE 40 MG TABLET PO SCH ×3 (08:00→20:55)
[2018-12-24] MEDS: METOPROLOL SUCCINATE XL 50 MG TABLET PO SCH (08:34)
[2018-12-24] MEDS: FLUTICASONE 50 MCG NASAL SPRAY 16 GM BOTTLE BOTH NARES SCH (08:34)
[2018-12-24] MEDS: LACTATED RINGERS 1,000 ML IV SCH (09:42)
[2018-12-24] MEDS ORDERED: MIDAZOLAM 2 MG/2 ML VIAL ONE (10:29)
[2018-12-24] MEDS ORDERED: fentaNYL 100 MCG/2 ML VIAL ONE (10:29)
[2018-12-24] MEDS ORDERED: ONDANSETRON 4 MG/2 ML VIAL ONE (10:30)
[2018-12-24] MEDS ORDERED: PROPOFOL 200 MG/20 ML VIAL IV ONE (10:42)
[2018-12-24] MEDS ORDERED: ETOMIDATE 20 MG/10 ML VIAL IV ONE (10:42)
[2018-12-24] MEDS ORDERED: LIDOCAINE 1% 5 ML VIAL ONE (10:42)
[2018-12-24] MEDS ORDERED: SUCCINYLCHOLINE 200 MG/10 ML VIAL ONE (10:42)
[2018-12-24] MEDS ORDERED: PHENYLEPHRINE 1 MG/10 ML SYRINGE IV ONE (10:42)
[2018-12-24] MEDS ORDERED: ROCURONIUM 100 MG/10 ML VIAL IV ONE (10:42)
[2018-12-24] MEDS: LEVOFLOXACIN INJ 750 MG in PREMIX 1 EACH IV SCH (17:45)
[2018-12-25] MEDS: ALBUTEROL/IPRATROPIUM 3 ML NEB RESP TX SCH ×5 (00:25→18:00)
[2018-12-25] MEDS: LACTATED RINGERS 1,000 ML IV SCH ×2 (04:53→20:19)
[2018-12-25 05:53] LABS: Basophils % 0.5 % (0.0-0.8); Eosinophils # 0.3 10*3/uL (0.0-0.87); Eosinophils % 5.6 % (0.00-10.9); Hematocrit 36.7 VOL% (42.0-52.0); Hemoglobin 11.7 GM/DL (14.0-18.0); Immature Granulocytes % 0.3 %; Immature Granulocytes Absolute 0.02 #; Lymphocytes # 0.9 10*3/uL (1.4-4.0); Lymphocytes % 15.3 % (21.2-54.2); Mean Corpuscular HGB Conc 31.9 GM/DL (32-36); Mean Corpuscular Volume 105.8 FL (87-102); Mean Platelet Volume 11.1 FL (9.6-12.0); Monocytes % 9.7 % (1.7-12.7); Neutrophils % 68.6 % (38.7-73.9); Platelet Count 179 T/CUMM (130-400); Red Blood Count 3.47 MC/CUMM (3.8-5.5); Red Cell Distribution Width 13.2 % (9.3-17.3); White Blood Count 5.9 T/CUMM (4-12)
[2018-12-25] MEDS ORDERED: FAMOTIDINE 20 MG/2 ML VIAL IV ONE (06:00)
[2018-12-25] MEDS ORDERED: INDOCYANINE GREEN 25 MG VIAL IV ONE (06:00)
[2018-12-25 06:14] LABS: Albumin 2.4 G/DL (3.4-5.0); Bilirubin,Total 2.3 MG/DL (0.2-1.0); Calcium 8.7 MG/DL (8.5-10.1); Osmolality,Calculated 273.5 MOS/KG (273-304); Total Protein 5.7 G/DL (6.4-8.3)
[2018-12-25] MEDS: LEVOTHYROXINE 112 MCG TABLET PO SCH (07:29)
[2018-12-25] MEDS ORDERED: TISSUE ADHESIVE 1 EACH APPLICATOR TOP ONE (08:04)
[2018-12-25] MEDS ORDERED: fentaNYL 100 MCG/2 ML VIAL ONE (08:25)
[2018-12-25] MEDS ORDERED: SEVOFLURANE 1 UNIT/15 MINUTE INH ONE (08:25)
[2018-12-25] MEDS ORDERED: MIDAZOLAM 2 MG/2 ML VIAL ONE (08:25)
[2018-12-25] MEDS ORDERED: ETOMIDATE 40 MG/20 ML VIAL IV ONE (08:25)
[2018-12-25] MEDS ORDERED: ONDANSETRON 4 MG/2 ML VIAL ONE (08:25)
[2018-12-25] MEDS ORDERED: PROPOFOL 200 MG/20 ML VIAL IV ONE (08:25)
[2018-12-25] MEDS ORDERED: GLYCOPYRROLATE 0.4 MG/2 ML VIAL ONE (08:26)
[2018-12-25] MEDS ORDERED: SUCCINYLCHOLINE 200 MG/10 ML VIAL ONE (08:26)
[2018-12-25] MEDS ORDERED: NEOSTIGMINE 10 MG/10 ML VIAL ONE (08:26)
[2018-12-25] MEDS ORDERED: ROCURONIUM 100 MG/10 ML VIAL IV ONE (08:26)
[2018-12-25] MEDS ORDERED: PHENYLEPHRINE 1 MG/10 ML SYRINGE IV ONE (08:26)
[2018-12-25] MEDS: METOPROLOL SUCCINATE XL 50 MG TABLET PO SCH (10:54)
[2018-12-25] MEDS: ATORVASTATIN 40 MG TABLET PO SCH (10:54)
[2018-12-25] MEDS: PANTOPRAZOLE 40 MG TABLET PO SCH ×3 (10:55→20:18)
[2018-12-25] MEDS: GABAPENTIN 600 MG TABLET PO SCH ×3 (10:55→20:18)
[2018-12-25] MEDS: MULTIVITAMIN (CENTRUM) TABLET PO SCH (10:55)
[2018-12-25] MEDS: FERROUS SULFATE 325 MG TABLET PO SCH (10:55)
[2018-12-25] MEDS: MAGNESIUM OXIDE 400 MG TABLET PO SCH ×2 (10:55→20:18)
[2018-12-25] MEDS: CHOLECALCIFEROL 1,000 UNIT TABLET PO SCH (10:55)
[2018-12-25] MEDS: FLUTICASONE 50 MCG NASAL SPRAY 16 GM BOTTLE BOTH NARES SCH (11:12)
[2018-12-25] MEDS ORDERED: LACTATED RINGERS 500 ML IV ONE (16:02)
[2018-12-25] MEDS: ALUMINUM/MAGNES/SIMETH MAX STR 30 ML UDCUP PO PRN (16:30)
[2018-12-25] MEDS: TAMSULOSIN 0.4 MG CAPSULE PO SCH (18:32)
[2018-12-25] MEDS: LEVOFLOXACIN INJ 750 MG in PREMIX 1 EACH IV SCH ×2 (18:32→19:30)
[2018-12-26] MEDS: ALBUTEROL/IPRATROPIUM 3 ML NEB RESP TX SCH ×4 (00:05→19:09)
[2018-12-26] MEDS: LEVOTHYROXINE 112 MCG TABLET PO SCH (06:01)
[2018-12-26 06:18] LABS: Albumin 2.4 G/DL (3.4-5.0); Bilirubin,Total 3.5 MG/DL (0.2-1.0); Calcium 8.5 MG/DL (8.5-10.1); Total Protein 5.9 G/DL (6.4-8.3)
[2018-12-26] MEDS: MULTIVITAMIN (CENTRUM) TABLET PO SCH (10:20)
[2018-12-26] MEDS: ASPIRIN EC 81 MG TABLET PO SCH (10:21)
[2018-12-26] MEDS: TAMSULOSIN 0.4 MG CAPSULE PO SCH (10:21)
[2018-12-26] MEDS: MAGNESIUM OXIDE 400 MG TABLET PO SCH ×2 (10:21→20:46)
[2018-12-26] MEDS: FERROUS SULFATE 325 MG TABLET PO SCH (10:21)
[2018-12-26] MEDS: ATORVASTATIN 40 MG TABLET PO SCH (10:21)
[2018-12-26] MEDS: METOPROLOL SUCCINATE XL 50 MG TABLET PO SCH (10:21)
[2018-12-26] MEDS: GABAPENTIN 600 MG TABLET PO SCH ×3 (10:21→20:45)
[2018-12-26] MEDS: PANTOPRAZOLE 40 MG TABLET PO SCH ×3 (10:22→20:46)
[2018-12-26] MEDS: ENOXAPARIN 40 MG/0.4 ML SYRINGE SUBCUT SCH (10:22)
[2018-12-26] MEDS: FLUTICASONE 50 MCG NASAL SPRAY 16 GM BOTTLE BOTH NARES SCH (10:22)
[2018-12-26] MEDS: CHOLECALCIFEROL 1,000 UNIT TABLET PO SCH (10:25)
[2018-12-26] MEDS: MONTELUKAST 10 MG TABLET PO SCH (12:47)
[2018-12-27] MEDS: ALBUTEROL/IPRATROPIUM 3 ML NEB RESP TX SCH ×3 (00:26→13:20)
[2018-12-27 04:54] LABS: Basophils % 0.5 % (0.0-0.8); Eosinophils # 0.4 10*3/uL (0.0-0.87); Eosinophils % 4.9 % (0.00-10.9); Hematocrit 33.4 VOL% (42.0-52.0); Hemoglobin 11.1 GM/DL (14.0-18.0); Immature Granulocytes % 0.5 %; Immature Granulocytes Absolute 0.04 #; Lymphocytes # 1.1 10*3/uL (1.4-4.0); Lymphocytes % 13.6 % (21.2-54.2); Mean Corpuscular HGB Conc 33.2 GM/DL (32-36); Mean Corpuscular Volume 101.5 FL (87-102); Mean Platelet Volume 10.9 FL (9.6-12.0); Monocytes % 8.3 % (1.7-12.7); Neutrophils % 72.2 % (38.7-73.9); Platelet Count 176 T/CUMM (130-400); Red Blood Count 3.29 MC/CUMM (3.8-5.5); Red Cell Distribution Width 13.2 % (9.3-17.3)
[2018-12-27 05:42] LABS: Albumin 2.4 G/DL (3.4-5.0); Bilirubin,Total 2.8 MG/DL (0.2-1.0); Calcium 8.7 MG/DL (8.5-10.1); Osmolality,Calculated 275.4 MOS/KG (273-304); Total Protein 5.6 G/DL (6.4-8.3)
[2018-12-27] MEDS: LEVOTHYROXINE 112 MCG TABLET PO SCH (06:28)
[2018-12-27] MEDS: GABAPENTIN 600 MG TABLET PO SCH ×2 (08:48→16:04)
[2018-12-27] MEDS: CHOLECALCIFEROL 1,000 UNIT TABLET PO SCH (08:48)
[2018-12-27] MEDS: MONTELUKAST 10 MG TABLET PO SCH (08:48)
[2018-12-27] MEDS: ASPIRIN EC 81 MG TABLET PO SCH ×2 (08:49→08:51)
[2018-12-27] MEDS: FERROUS SULFATE 325 MG TABLET PO SCH (08:49)
[2018-12-27] MEDS: MAGNESIUM OXIDE 400 MG TABLET PO SCH (08:49)
[2018-12-27] MEDS: ATORVASTATIN 40 MG TABLET PO SCH (08:49)
[2018-12-27] MEDS: MULTIVITAMIN (CENTRUM) TABLET PO SCH (08:49)
[2018-12-27] MEDS: METOPROLOL SUCCINATE XL 50 MG TABLET PO SCH (08:49)
[2018-12-27] MEDS: TAMSULOSIN 0.4 MG CAPSULE PO SCH (08:49)
[2018-12-27] MEDS: PANTOPRAZOLE 40 MG TABLET PO SCH ×2 (08:49→08:57)
[2018-12-27] MEDS: FLUTICASONE 50 MCG NASAL SPRAY 16 GM BOTTLE BOTH NARES SCH (08:57)
[2018-12-27] MEDS ORDERED: FUROSEMIDE 40 MG/4 ML VIAL IV ONE (10:16)
[2018-12-27] MEDS: ALUMINUM/MAGNES/SIMETH MAX STR 30 ML UDCUP PO PRN (13:14)
[2018-12-27 18:08] VITALS: BP 128/76
== END 2018-12-27 17:09 | disposition home or self-care (01) | DRG 417 ==
LOC: N.ED 14:02 → N.EDINP 15:55 → N.3E 17:27
PROVIDERS: ADMIT Surgery; ATTEND Surgery
PROC: ERCPWSP (ICD-10-PCS; 2018-12-24 09:35)
PROC: LAPCHOL (2018-12-25 07:25)

== ENCOUNTER 2019-07-19 10:15 | Inpatient (IN) ==
[2019-07-19 10:46] LABS: Basophils % 0.2 % (0.0-0.8); Eosinophils % 0.2 % (0.00-10.9); Hematocrit 33.1 VOL% (42.0-52.0); Immature Granulocytes % 1.5 %; Immature Granulocytes Absolute 0.13 #; Lymphocytes # 0.2 10*3/uL (1.4-4.0); Lymphocytes % 2.5 % (21.2-54.2); Mean Corpuscular HGB Conc 33.2 GM/DL (32-36); Mean Corpuscular Volume 110.3 FL (87-102); Mean Platelet Volume 10.4 FL (9.6-12.0); Monocytes % 4.4 % (1.7-12.7); NRBC # 0.05 10*3/uL; Neutrophils % 91.2 % (38.7-73.9); Platelet Count 129 T/CUMM (130-400); Red Cell Distribution Width 21.5 % (9.3-17.3); White Blood Count 8.6 T/CUMM (4-12)
[2019-07-19] MEDS ORDERED: IPRATROPIUM 500 MCG/2.5 ML NEB RESP TX STA (10:59)
[2019-07-19 11:11] LABS: Band Neutrophils 31 % (0-10); Lymphocytes 1 % (20-55); Platelet Estimate Adequate; Segmented Neutrophils 65 % (50-85); Total Cells Counted 100
[2019-07-19 11:12] LABS: Anisocytosis 1+; Macrocytosis 1+; Polychromasia Slight
[2019-07-19 11:14] LABS: Albumin 2.4 G/DL (3.4-5.0); Bilirubin,Total 0.6 MG/DL (0.2-1.0); Calcium 8.9 MG/DL (8.5-10.1); Osmolality,Calculated 281.5 MOS/KG (273-304); Total Protein 5.6 G/DL (6.4-8.3)
[2019-07-19] MEDS ORDERED: LEVOFLOXACIN INJ 750 MG in PREMIX 1 EACH IV STA (12:05)
[2019-07-19] MEDS ORDERED: guaiFENesin/DM ER 600-30 MG TABLET PO PRN (13:30)
[2019-07-19] MEDS ORDERED: ACETAMINOPHEN 325 MG TABLET PO PRN (13:30)
[2019-07-19] MEDS ORDERED: FUROSEMIDE 40 MG/4 ML VIAL IV ONE (13:38)
[2019-07-19] MEDS ORDERED: NITROGLYCERIN SL 0.4 MG TABLET SL PRN (13:38)
[2019-07-19 14:14] LABS: Risk Ratio 1.49; Thyroid Stimulating Hormone 0.279 uIU/ml (0.358-3.74); VLDL CHOLESTEROL 12.8 MG/DL
[2019-07-19] MEDS ORDERED: methylPREDNISolone SOD SUC 125 MG/2 ML VIAL ONE (14:59)
[2019-07-19] MEDS: methylPREDNISolone SOD SUC 125 MG/2 ML VIAL IV SCH ×2 (15:01→23:38)
[2019-07-19] MEDS ORDERED: NICOTINE 21 MG/24 HR PATCH TRANSDERM PRN (16:11)
[2019-07-19 16:19] LABS: Apearance,Urine CLEAR (Clear); Bacteria,Urine Occasional /HPF (Few); Bilirubin,Urine Negative (Negative); Blood, Urine Negative (Negative); Glucose,Urine (UA) Negative (Negative); Ketones,Urine Negative (Negative); Mucus,Urine Occasional /LPF (Occasional); Nitrite,Urine Negative (Negative); Protein,Urine Negative; RBC,Urine <1 /HPF (0-4); Urine Color Colorless (Yellow); Urine Specific Gravity 1.004 (1.001-1.035); Urine Urobilinogen < 2.0 EU/DL (0.2-1.0)
[2019-07-19] MEDS: GABAPENTIN 300 MG CAPSULE PO SCH ×2 (16:28→20:28)
[2019-07-19] MEDS ORDERED: IPRATROPIUM 500 MCG/2.5 ML NEB RESP TX SCH (19:00)
[2019-07-19] MEDS ORDERED: ALBUTEROL 2.5 MG/3 ML NEB RESP TX PRN (19:00)
[2019-07-19] MEDS ORDERED: ALBUTEROL/IPRATROPIUM 3 ML NEB RESP TX PRN (19:34)
[2019-07-19] MEDS: MONTELUKAST 10 MG TABLET PO SCH (20:28)
[2019-07-19] MEDS: APIXABAN 5 MG TABLET PO SCH (20:28)
[2019-07-19] MEDS: MAGNESIUM OXIDE 400 MG TABLET PO SCH (20:28)
[2019-07-19] MEDS: ALBUTEROL/IPRATROPIUM 3 ML NEB RESP TX SCH (23:20)
[2019-07-20] MEDS: ALBUTEROL/IPRATROPIUM 3 ML NEB RESP TX SCH ×6 (03:05→23:53)
[2019-07-20] MEDS: BENZONATATE 100 MG CAPSULE PO SCH ×4 (03:12→20:05)
[2019-07-20 05:11] LABS: Basophils % 0.2 % (0.0-0.8); Hematocrit 30.7 VOL% (42.0-52.0); Hemoglobin 10.3 GM/DL (14.0-18.0); Immature Granulocytes % 1.2 %; Immature Granulocytes Absolute 0.12 #; Lymphocytes # 0.2 10*3/uL (1.4-4.0); Lymphocytes % 1.6 % (21.2-54.2); Mean Corpuscular HGB Conc 33.6 GM/DL (32-36); Mean Corpuscular Volume 110.8 FL (87-102); Mean Platelet Volume 10.9 FL (9.6-12.0); Monocytes % 1.2 % (1.7-12.7); Neutrophils % 95.8 % (38.7-73.9); Platelet Count 123 T/CUMM (130-400); Red Blood Count 2.77 MC/CUMM (3.8-5.5); White Blood Count 9.9 T/CUMM (4-12)
[2019-07-20 05:33] LABS: Calcium 9.2 MG/DL (8.5-10.1); Osmolality,Calculated 280.8 MOS/KG (273-304)
[2019-07-20 05:39] LABS: Bilirubin,Direct 0.28 MG/DL (0.0-0.20); Bilirubin,Indirect 0.4 MG/DL (0.0-1.0); Bilirubin,Total 0.7 MG/DL (0.2-1.0); Total Protein 5.2 G/DL (6.4-8.3)
[2019-07-20 06:36] LABS: Anisocytosis 2+; Band Neutrophils 24 % (0-10); Lymphocytes 2 % (20-55); Platelet Estimate Adequate; Segmented Neutrophils 72 % (50-85); Total Cells Counted 100
[2019-07-20 06:37] LABS: Macrocytosis 2+; Tear Drop Cells Few
[2019-07-20] MEDS: methylPREDNISolone SOD SUC 125 MG/2 ML VIAL IV SCH ×2 (06:37→15:02)
[2019-07-20] MEDS: LEVOTHYROXINE 125 MCG TABLET PO SCH (06:38)
[2019-07-20] MEDS ORDERED: TIOTROPIUM BROMIDE INH SCH (09:00)
[2019-07-20] MEDS ORDERED: LEVOTHYROXINE 125 MCG TABLET PO SCH (09:00)
[2019-07-20] MEDS: DILTIAZEM CD 180 MG CAPSULE PO SCH (09:13)
[2019-07-20] MEDS: GABAPENTIN 300 MG CAPSULE PO SCH ×3 (09:13→20:05)
[2019-07-20] MEDS: APIXABAN 5 MG TABLET PO SCH ×2 (09:14→20:05)
[2019-07-20] MEDS: MAGNESIUM OXIDE 400 MG TABLET PO SCH ×2 (09:14→20:05)
[2019-07-20] MEDS: MULTIVITAMIN (CENTRUM) TABLET PO SCH (09:14)
[2019-07-20] MEDS: METOPROLOL SUCCINATE XL 100 MG TABLET PO SCH (09:14)
[2019-07-20] MEDS: CHOLECALCIFEROL 1,000 UNIT TABLET PO SCH (09:14)
[2019-07-20] MEDS: FLUTICASONE 50 MCG NASAL SPRAY 16 GM BOTTLE BOTH NARES SCH (09:17)
[2019-07-20] MEDS: LEVOFLOXACIN INJ 750 MG in PREMIX 1 EACH IV SCH (12:48)
[2019-07-20] MEDS: ALUMINUM/MAGNES/SIMETH MAX STR 30 ML UDCUP PO PRN (17:17)
[2019-07-20] MEDS: MONTELUKAST 10 MG TABLET PO SCH (20:05)
[2019-07-21] MEDS: methylPREDNISolone SOD SUC 125 MG/2 ML VIAL IV SCH ×3 (00:33→21:05)
[2019-07-21] MEDS: ALBUTEROL/IPRATROPIUM 3 ML NEB RESP TX SCH ×6 (03:46→22:57)
[2019-07-21] MEDS: LEVOTHYROXINE 125 MCG TABLET PO SCH (06:17)
[2019-07-21 07:12] LABS: Basophils % 0.2 % (0.0-0.8); Hematocrit 28.9 VOL% (42.0-52.0); Hemoglobin 9.8 GM/DL (14.0-18.0); Immature Granulocytes % 2.1 %; Immature Granulocytes Absolute 0.25 #; Lymphocytes # 0.2 10*3/uL (1.4-4.0); Lymphocytes % 1.2 % (21.2-54.2); Mean Corpuscular HGB Conc 33.9 GM/DL (32-36); Mean Corpuscular Volume 109.9 FL (87-102); Mean Platelet Volume 11.1 FL (9.6-12.0); Monocytes % 2.1 % (1.7-12.7); Neutrophils % 94.4 % (38.7-73.9); Platelet Count 131 T/CUMM (130-400); Red Blood Count 2.63 MC/CUMM (3.8-5.5); Red Cell Distribution Width 20.5 % (9.3-17.3); White Blood Count 12.2 T/CUMM (4-12)
[2019-07-21 07:33] LABS: Calcium 9.6 MG/DL (8.5-10.1); Osmolality,Calculated 281.2 MOS/KG (273-304)
[2019-07-21 07:36] LABS: Bilirubin,Direct 0.22 MG/DL (0.0-0.20); Bilirubin,Indirect 0.2 MG/DL (0.0-1.0); Bilirubin,Total 0.4 MG/DL (0.2-1.0); Total Protein 5.8 G/DL (6.4-8.3)
[2019-07-21 07:49] LABS: Band Neutrophils 2 % (0-10); Hypochromasia 1+; Ovalocytes Slight; Platelet Estimate Normal; Segmented Neutrophils 94 % (50-85); Total Cells Counted 100
[2019-07-21] MEDS: GABAPENTIN 300 MG CAPSULE PO SCH ×3 (08:11→21:03)
[2019-07-21] MEDS: METOPROLOL SUCCINATE XL 100 MG TABLET PO SCH (08:12)
[2019-07-21] MEDS: BENZONATATE 100 MG CAPSULE PO SCH ×3 (08:12→21:04)
[2019-07-21] MEDS: CHOLECALCIFEROL 1,000 UNIT TABLET PO SCH (08:12)
[2019-07-21] MEDS: MULTIVITAMIN (CENTRUM) TABLET PO SCH (08:12)
[2019-07-21] MEDS: DILTIAZEM CD 180 MG CAPSULE PO SCH (08:12)
[2019-07-21] MEDS: APIXABAN 5 MG TABLET PO SCH ×2 (08:12→21:04)
[2019-07-21] MEDS: MAGNESIUM OXIDE 400 MG TABLET PO SCH ×2 (08:12→21:04)
[2019-07-21] MEDS: FLUTICASONE 50 MCG NASAL SPRAY 16 GM BOTTLE BOTH NARES SCH (08:16)
[2019-07-21] MEDS ORDERED: ALBUTEROL 2.5 MG/3 ML NEB RESP TX PRN (08:17)
[2019-07-21] MEDS ORDERED: FUROSEMIDE 20 MG/2 ML VIAL IV SCH (09:00)
[2019-07-21] MEDS ORDERED: FUROSEMIDE 20 MG/2 ML VIAL IV ONE (11:04)
[2019-07-21] MEDS: LEVOFLOXACIN INJ 750 MG in PREMIX 1 EACH IV SCH (12:34)
[2019-07-21] MEDS: ONDANSETRON 4 MG/2 ML VIAL IV PRN (17:17)
[2019-07-21] MEDS: ALUMINUM/MAGNES/SIMETH MAX STR 30 ML UDCUP PO PRN (18:14)
[2019-07-21] MEDS: MONTELUKAST 10 MG TABLET PO SCH (21:04)
[2019-07-22] MEDS: ALBUTEROL/IPRATROPIUM 3 ML NEB RESP TX SCH ×6 (02:51→22:33)
[2019-07-22 05:11] LABS: Basophils % 0.2 % (0.0-0.8); Hematocrit 28.5 VOL% (42.0-52.0); Hemoglobin 9.6 GM/DL (14.0-18.0); Immature Granulocytes % 2.6 %; Lymphocytes # 0.2 10*3/uL (1.4-4.0); Mean Corpuscular HGB Conc 33.7 GM/DL (32-36); Mean Corpuscular Volume 108.4 FL (87-102); Mean Platelet Volume 10.7 FL (9.6-12.0); Neutrophils % 94.2 % (38.7-73.9); Platelet Count 142 T/CUMM (130-400); Red Blood Count 2.63 MC/CUMM (3.8-5.5); Red Cell Distribution Width 20.2 % (9.3-17.3); White Blood Count 15.2 T/CUMM (4-12)
[2019-07-22 05:32] LABS: Hypochromasia 1+; Lymphocytes 1 % (20-55); Ovalocytes Slight; Platelet Estimate Normal; Segmented Neutrophils 98 % (50-85); Total Cells Counted 100
[2019-07-22 05:47] LABS: Calcium 9.9 MG/DL (8.5-10.1); Osmolality,Calculated 282.2 MOS/KG (273-304)
[2019-07-22 05:50] LABS: Albumin 2.2 G/DL (3.4-5.0); Bilirubin,Total 0.4 MG/DL (0.2-1.0); Calcium 9.9 MG/DL (8.5-10.1); Osmolality,Calculated 283.1 MOS/KG (273-304); Total Protein 5.7 G/DL (6.4-8.3)
[2019-07-22] MEDS: LEVOTHYROXINE 112 MCG TABLET PO SCH (06:09)
[2019-07-22] MEDS: FLUTICASONE 50 MCG NASAL SPRAY 16 GM BOTTLE BOTH NARES SCH (08:31)
[2019-07-22] MEDS: MAGNESIUM OXIDE 400 MG TABLET PO SCH ×2 (08:31→20:33)
[2019-07-22] MEDS: GABAPENTIN 300 MG CAPSULE PO SCH ×3 (08:31→20:33)
[2019-07-22] MEDS: APIXABAN 5 MG TABLET PO SCH ×2 (08:31→20:34)
[2019-07-22] MEDS: MULTIVITAMIN (CENTRUM) TABLET PO SCH (08:31)
[2019-07-22] MEDS: CHOLECALCIFEROL 1,000 UNIT TABLET PO SCH (08:31)
[2019-07-22] MEDS: METOPROLOL SUCCINATE XL 100 MG TABLET PO SCH (08:31)
[2019-07-22] MEDS: BENZONATATE 100 MG CAPSULE PO SCH ×3 (08:31→20:34)
[2019-07-22] MEDS: methylPREDNISolone SOD SUC 125 MG/2 ML VIAL IV SCH (08:32)
[2019-07-22] MEDS: DILTIAZEM CD 180 MG CAPSULE PO SCH (08:33)
[2019-07-22] MEDS ORDERED: FLUCONAZOLE 100 MG TABLET PO SCH (09:00)
[2019-07-22] MEDS ORDERED: OMEPRAZOLE 20MG PO SCH (09:00)
[2019-07-22] MEDS: NYSTATIN 500,000 UNIT/5 ML UDCUP SWISH/SWAL SCH ×3 (12:16→20:33)
[2019-07-22] MEDS: LEVOFLOXACIN INJ 750 MG in PREMIX 1 EACH IV SCH (12:16)
[2019-07-22] MEDS: LACTULOSE 20 GM/30 ML UDCUP PO PRN (20:33)
[2019-07-22] MEDS: MONTELUKAST 10 MG TABLET PO SCH (20:34)
[2019-07-22] MEDS: methylPREDNISolone SOD SUC 40 MG/1 ML VIAL IV SCH (20:34)
[2019-07-23] MEDS: ALBUTEROL/IPRATROPIUM 3 ML NEB RESP TX SCH ×5 (02:47→18:56)
[2019-07-23] MEDS: ONDANSETRON 4 MG/2 ML VIAL IV PRN ×3 (03:35→23:45)
[2019-07-23 04:55] LABS: Basophils % 0.2 % (0.0-0.8); Hematocrit 31.8 VOL% (42.0-52.0); Hemoglobin 10.4 GM/DL (14.0-18.0); Immature Granulocytes % 2.7 %; Immature Granulocytes Absolute 0.45 #; Lymphocytes # 0.3 10*3/uL (1.4-4.0); Mean Corpuscular HGB Conc 32.7 GM/DL (32-36); Mean Corpuscular Volume 110.8 FL (87-102); Mean Platelet Volume 10.6 FL (9.6-12.0); Monocytes % 2.5 % (1.7-12.7); Neutrophils % 92.6 % (38.7-73.9); Platelet Count 157 T/CUMM (130-400); Red Blood Count 2.87 MC/CUMM (3.8-5.5); Red Cell Distribution Width 20.3 % (9.3-17.3)
[2019-07-23 05:23] LABS: Band Neutrophils 4 % (0-10); Lymphocytes 1 % (20-55); Metamyelocytes 2 %; Nucleated Red Blood Cells 1 (0-5); Segmented Neutrophils 88 % (50-85); Total Cells Counted 100
[2019-07-23 05:24] LABS: Hypochromasia 1+; Macrocytosis 1+; Ovalocytes Few; Tear Drop Cells Few
[2019-07-23 05:26] LABS: Platelet Estimate Adequate
[2019-07-23 05:32] LABS: Albumin 2.3 G/DL (3.4-5.0); Bilirubin,Total 0.4 MG/DL (0.2-1.0); Calcium 11.5 MG/DL (8.5-10.1); Osmolality,Calculated 285.8 MOS/KG (273-304); Total Protein 5.7 G/DL (6.4-8.3)
[2019-07-23] MEDS: methylPREDNISolone SOD SUC 40 MG/1 ML VIAL IV SCH ×2 (08:55→21:33)
[2019-07-23] MEDS: APIXABAN 5 MG TABLET PO SCH ×2 (08:55→21:32)
[2019-07-23] MEDS: METOPROLOL SUCCINATE XL 100 MG TABLET PO SCH (08:55)
[2019-07-23] MEDS: BENZONATATE 100 MG CAPSULE PO SCH ×3 (08:56→21:32)
[2019-07-23] MEDS: DILTIAZEM CD 180 MG CAPSULE PO SCH (08:56)
[2019-07-23] MEDS: CHOLECALCIFEROL 1,000 UNIT TABLET PO SCH (08:56)
[2019-07-23] MEDS: LEVOTHYROXINE 112 MCG TABLET PO SCH (08:56)
[2019-07-23] MEDS: MULTIVITAMIN (CENTRUM) TABLET PO SCH (08:56)
[2019-07-23] MEDS: NYSTATIN 500,000 UNIT/5 ML UDCUP SWISH/SWAL SCH ×4 (08:57→21:32)
[2019-07-23] MEDS: FLUTICASONE 50 MCG NASAL SPRAY 16 GM BOTTLE BOTH NARES SCH (08:57)
[2019-07-23] MEDS: GABAPENTIN 300 MG CAPSULE PO SCH ×3 (08:57→21:33)
[2019-07-23] MEDS: MAGNESIUM OXIDE 400 MG TABLET PO SCH (08:57)
[2019-07-23] MEDS: LACTULOSE 20 GM/30 ML UDCUP PO PRN (09:08)
[2019-07-23] MEDS ORDERED: SODIUM PHOSPHATE ENEMA 133 ML BOTTLE RECTAL PRN (10:20)
[2019-07-23] MEDS ORDERED: SODIUM PHOSPHATE ENEMA 133 ML BOTTLE RECTAL ONE (10:20)
[2019-07-23] MEDS: LEVOFLOXACIN INJ 750 MG in PREMIX 1 EACH IV SCH (12:26)
[2019-07-23] MEDS: LACTULOSE 20 GM/30 ML UDCUP PO SCH ×2 (14:15→21:36)
[2019-07-23] MEDS: MONTELUKAST 10 MG TABLET PO SCH (21:32)
[2019-07-24] MEDS ORDERED: PROMETHAZINE 25 MG/1 ML VIAL IM ONE
[2019-07-24] MEDS: ALBUTEROL/IPRATROPIUM 3 ML NEB RESP TX SCH ×7 (00:30→23:40)
[2019-07-24] MEDS: LEVOTHYROXINE 112 MCG TABLET PO SCH (06:01)
[2019-07-24] MEDS: LACTULOSE 20 GM/30 ML UDCUP PO SCH (08:47)
[2019-07-24] MEDS: GABAPENTIN 300 MG CAPSULE PO SCH ×3 (09:24→21:31)
[2019-07-24] MEDS: BENZONATATE 100 MG CAPSULE PO SCH ×3 (09:24→21:31)
[2019-07-24] MEDS: APIXABAN 5 MG TABLET PO SCH ×2 (09:25→21:31)
[2019-07-24] MEDS: CHOLECALCIFEROL 1,000 UNIT TABLET PO SCH (09:25)
[2019-07-24] MEDS: FLUTICASONE 50 MCG NASAL SPRAY 16 GM BOTTLE BOTH NARES SCH (09:25)
[2019-07-24] MEDS: METOPROLOL SUCCINATE XL 100 MG TABLET PO SCH (09:25)
[2019-07-24] MEDS: DILTIAZEM CD 180 MG CAPSULE PO SCH (09:25)
[2019-07-24] MEDS: NYSTATIN 500,000 UNIT/5 ML UDCUP SWISH/SWAL SCH ×4 (09:26→21:32)
[2019-07-24] MEDS: methylPREDNISolone SOD SUC 40 MG/1 ML VIAL IV SCH ×2 (10:09→21:32)
[2019-07-24] MEDS ORDERED: SODIUM CHLORIDE 0.9% 250 ML IV ONE (10:57)
[2019-07-24] MEDS: SODIUM CHLORIDE 0.45% 1,000 ML IV SCH (11:43)
[2019-07-24] MEDS: LEVOFLOXACIN INJ 750 MG in PREMIX 1 EACH IV SCH (12:30)
[2019-07-24] MEDS ORDERED: SODIUM CHLORIDE 0.9% 2,000 ML IV ONE (20:32)
[2019-07-24] MEDS: MONTELUKAST 10 MG TABLET PO SCH (21:31)
[2019-07-24] MEDS: POLYETHYLENE GLYCOL POWDER 17 GM PACK PO SCH (21:32)
[2019-07-24] MEDS ORDERED: SODIUM CHLORIDE 0.9% 1,000 ML IV SCH (22:30)
[2019-07-25] MEDS: ALBUTEROL/IPRATROPIUM 3 ML NEB RESP TX SCH ×6 (03:13→22:57)
[2019-07-25] MEDS: LEVOTHYROXINE 112 MCG TABLET PO SCH (06:34)
[2019-07-25 09:44] LABS: Basophils % 0.2 % (0.0-0.8); Hematocrit 32.4 VOL% (42.0-52.0); Hemoglobin 10.4 GM/DL (14.0-18.0); Immature Granulocytes % 2.1 %; Immature Granulocytes Absolute 0.39 #; Lymphocytes # 0.2 10*3/uL (1.4-4.0); Lymphocytes % 1.1 % (21.2-54.2); Mean Corpuscular HGB Conc 32.1 GM/DL (32-36); Mean Corpuscular Volume 112.5 FL (87-102); Mean Platelet Volume 10.8 FL (9.6-12.0); Monocytes % 1.3 % (1.7-12.7); Neutrophils % 95.3 % (38.7-73.9); Platelet Count 144 T/CUMM (130-400); Red Blood Count 2.88 MC/CUMM (3.8-5.5); Red Cell Distribution Width 20.3 % (9.3-17.3); White Blood Count 18.8 T/CUMM (4-12)
[2019-07-25 10:04] LABS: Band Neutrophils 4 % (0-10); Hypochromasia 1+; Lymphocytes 1 % (20-55); Metamyelocytes 1 %; Segmented Neutrophils 93 % (50-85); Total Cells Counted 100
[2019-07-25 10:05] LABS: Macrocytosis 1+; Ovalocytes Slight; Tear Drop Cells Slight
[2019-07-25 10:17] LABS: Albumin 1.9 G/DL (3.4-5.0); Bilirubin,Total 0.5 MG/DL (0.2-1.0); Calcium 9.7 MG/DL (8.5-10.1); Total Protein 4.9 G/DL (6.4-8.3)
[2019-07-25] MEDS ORDERED: GLUCAGON 1 MG VIAL IM PRN (10:40)
[2019-07-25] MEDS ORDERED: DEXTROSE 50% 25 GM/50 ML VIAL IV PRN (10:40)
[2019-07-25] MEDS ORDERED: DEXTROSE 10% 250 ML BAG IV PRN (10:54)
[2019-07-25] MEDS: LINACLOTIDE 145 MCG CAPSULE PO SCH (12:57)
[2019-07-25] MEDS: APIXABAN 5 MG TABLET PO SCH ×2 (12:57→21:27)
[2019-07-25] MEDS: DILTIAZEM CD 180 MG CAPSULE PO SCH (12:58)
[2019-07-25] MEDS: GABAPENTIN 300 MG CAPSULE PO SCH ×3 (12:59→21:27)
[2019-07-25] MEDS: NYSTATIN 500,000 UNIT/5 ML UDCUP SWISH/SWAL SCH ×4 (12:59→21:27)
[2019-07-25] MEDS: POLYETHYLENE GLYCOL POWDER 17 GM PACK PO SCH ×3 (12:59→21:42)
[2019-07-25] MEDS: METOPROLOL SUCCINATE XL 100 MG TABLET PO SCH (13:00)
[2019-07-25] MEDS: methylPREDNISolone SOD SUC 40 MG/1 ML VIAL IV SCH ×2 (13:00→21:25)
[2019-07-25] MEDS: BENZONATATE 100 MG CAPSULE PO SCH ×4 (13:00→21:29)
[2019-07-25] MEDS: CHOLECALCIFEROL 1,000 UNIT TABLET PO SCH (13:01)
[2019-07-25] MEDS: FLUTICASONE 50 MCG NASAL SPRAY 16 GM BOTTLE BOTH NARES SCH (13:02)
[2019-07-25] MEDS: CLINDAMYCIN INJ 300 MG in PREMIX 1 EACH IV SCH ×2 (13:07→17:44)
[2019-07-25] MEDS: INSULIN REGULAR 100 UNIT/ML SUBCUT SCH ×2 (13:30→18:02)
[2019-07-25] MEDS: FAT EMULSION 20% 250 ML IV SCH (14:19)
[2019-07-25] MEDS: LEVOFLOXACIN INJ 750 MG in PREMIX 1 EACH IV SCH (14:19)
[2019-07-25] MEDS ORDERED: DEXTROSE 10% 1,000 ML IV PRN (17:00)
[2019-07-25] MEDS: SODIUM CHLORIDE 0.45% 1,000 ML IV SCH (17:43)
[2019-07-25] MEDS: TRACE ELEMENTS (5) 1 ML, MULTIVITAMIN INJ 10 ML in AMINO ACIDS/DEXT/LYTES 4.25-5% 2,000 ML IV SCH (17:43)
[2019-07-25] MEDS: MONTELUKAST 10 MG TABLET PO SCH (21:27)
[2019-07-26] MEDS: INSULIN REGULAR 100 UNIT/ML SUBCUT SCH ×4 (00:30→18:37)
[2019-07-26] MEDS: ALBUTEROL/IPRATROPIUM 3 ML NEB RESP TX SCH ×6 (02:15→23:00)
[2019-07-26] MEDS: CLINDAMYCIN INJ 300 MG in PREMIX 1 EACH IV SCH ×3 (02:45→18:11)
[2019-07-26 04:59] LABS: Basophils % 0.2 % (0.0-0.8); Hematocrit 27.3 VOL% (42.0-52.0); Hemoglobin 9.2 GM/DL (14.0-18.0); Immature Granulocytes % 2.4 %; Immature Granulocytes Absolute 0.44 #; Lymphocytes # 0.2 10*3/uL (1.4-4.0); Lymphocytes % 0.8 % (21.2-54.2); Mean Corpuscular HGB Conc 33.7 GM/DL (32-36); Monocytes % 1.2 % (1.7-12.7); NRBC # 0.02 10*3/uL; Neutrophils % 95.4 % (38.7-73.9); Platelet Count 121 T/CUMM (130-400); Red Blood Count 2.46 MC/CUMM (3.8-5.5); Red Cell Distribution Width 19.9 % (9.3-17.3); White Blood Count 18.5 T/CUMM (4-12)
[2019-07-26 05:31] LABS: Band Neutrophils 4 % (0-10); Hypochromasia 1+; Lymphocytes 1 % (20-55); Segmented Neutrophils 93 % (50-85); Total Cells Counted 100
[2019-07-26 05:32] LABS: Anisocytosis 1+; Macrocytosis 1+; Ovalocytes Slight; Platelet Estimate Adequate
[2019-07-26 05:37] LABS: Albumin 1.8 G/DL (3.4-5.0); Bilirubin,Total 1.2 MG/DL (0.2-1.0); Calcium 9.4 MG/DL (8.5-10.1); Prealbumin 13.8 MG/DL (20-40); Total Protein 4.6 G/DL (6.4-8.3)
[2019-07-26] MEDS: METOPROLOL SUCCINATE XL 100 MG TABLET PO SCH (10:22)
[2019-07-26] MEDS: BENZONATATE 100 MG CAPSULE PO SCH ×3 (10:22→21:37)
[2019-07-26] MEDS: NYSTATIN 500,000 UNIT/5 ML UDCUP SWISH/SWAL SCH ×4 (10:42→21:36)
[2019-07-26] MEDS: LINACLOTIDE 145 MCG CAPSULE PO SCH (10:42)
[2019-07-26] MEDS: GABAPENTIN 300 MG CAPSULE PO SCH ×3 (10:42→21:37)
[2019-07-26] MEDS: APIXABAN 5 MG TABLET PO SCH ×2 (10:42→21:37)
[2019-07-26] MEDS: LEVOTHYROXINE 112 MCG TABLET PO SCH (10:42)
[2019-07-26] MEDS: CHOLECALCIFEROL 1,000 UNIT TABLET PO SCH (10:42)
[2019-07-26] MEDS: POLYETHYLENE GLYCOL POWDER 17 GM PACK PO SCH ×2 (10:42→21:36)
[2019-07-26] MEDS: methylPREDNISolone SOD SUC 40 MG/1 ML VIAL IV SCH ×3 (10:42→21:34)
[2019-07-26] MEDS: DILTIAZEM CD 180 MG CAPSULE PO SCH (10:42)
[2019-07-26] MEDS: FLUTICASONE 50 MCG NASAL SPRAY 16 GM BOTTLE BOTH NARES SCH (11:36)
[2019-07-26] MEDS: LEVOFLOXACIN INJ 750 MG in PREMIX 1 EACH IV SCH (13:38)
[2019-07-26] MEDS: FAT EMULSION 20% 250 ML IV SCH (13:46)
[2019-07-26] MEDS: TRACE ELEMENTS (5) 1 ML, MULTIVITAMIN INJ 10 ML in AMINO ACIDS/DEXT/LYTES 4.25-5% 2,000 ML IV SCH (18:54)
[2019-07-26] MEDS: MONTELUKAST 10 MG TABLET PO SCH (21:37)
[2019-07-27] MEDS: INSULIN REGULAR 100 UNIT/ML SUBCUT SCH ×4 (00:04→18:58)
[2019-07-27] MEDS: CLINDAMYCIN INJ 300 MG in PREMIX 1 EACH IV SCH ×3 (02:30→18:51)
[2019-07-27] MEDS: ALBUTEROL/IPRATROPIUM 3 ML NEB RESP TX SCH ×6 (03:00→23:53)
[2019-07-27] MEDS: methylPREDNISolone SOD SUC 40 MG/1 ML VIAL IV SCH ×3 (04:45→20:55)
[2019-07-27 06:03] LABS: Basophils % 0.2 % (0.0-0.8); Hemoglobin 8.6 GM/DL (14.0-18.0); Immature Granulocytes % 5.1 %; Immature Granulocytes Absolute 1.02 #; Lymphocytes # 0.2 10*3/uL (1.4-4.0); Mean Corpuscular HGB Conc 33.1 GM/DL (32-36); Mean Corpuscular Volume 111.1 FL (87-102); Mean Platelet Volume 11.2 FL (9.6-12.0); Monocytes % 1.7 % (1.7-12.7); NRBC # 0.04 10*3/uL; Platelet Count 120 T/CUMM (130-400); Red Blood Count 2.34 MC/CUMM (3.8-5.5); White Blood Count 20.1 T/CUMM (4-12)
[2019-07-27 06:30] LABS: Albumin 1.8 G/DL (3.4-5.0); Bilirubin,Total 0.6 MG/DL (0.2-1.0); Calcium 9.3 MG/DL (8.5-10.1); Osmolality,Calculated 291.8 MOS/KG (273-304); Total Protein 4.5 G/DL (6.4-8.3)
[2019-07-27 08:26] LABS: Band Neutrophils 1 % (0-10); Lymphocytes 2 % (20-55); Segmented Neutrophils 94 % (50-85); Total Cells Counted 100
[2019-07-27 08:27] LABS: Anisocytosis 1+; Hypochromasia 1+; Macrocytosis 1+; Ovalocytes Slight; Tear Drop Cells Slight
[2019-07-27] MEDS ORDERED: FUROSEMIDE 20 MG/2 ML VIAL IV ONE (09:07)
[2019-07-27] MEDS: POLYETHYLENE GLYCOL POWDER 17 GM PACK PO SCH ×2 (10:15→21:05)
[2019-07-27] MEDS: LINACLOTIDE 145 MCG CAPSULE PO SCH (10:17)
[2019-07-27] MEDS: LEVOTHYROXINE 112 MCG TABLET PO SCH (10:17)
[2019-07-27] MEDS: GABAPENTIN 300 MG CAPSULE PO SCH ×3 (10:17→20:59)
[2019-07-27] MEDS: FLUTICASONE 50 MCG NASAL SPRAY 16 GM BOTTLE BOTH NARES SCH (10:18)
[2019-07-27] MEDS: DILTIAZEM CD 180 MG CAPSULE PO SCH (10:18)
[2019-07-27] MEDS: BENZONATATE 100 MG CAPSULE PO SCH ×3 (10:18→20:59)
[2019-07-27] MEDS: CHOLECALCIFEROL 1,000 UNIT TABLET PO SCH (10:18)
[2019-07-27] MEDS: APIXABAN 5 MG TABLET PO SCH ×2 (10:18→20:59)
[2019-07-27] MEDS: METOPROLOL SUCCINATE XL 100 MG TABLET PO SCH (10:19)
[2019-07-27] MEDS: NYSTATIN 500,000 UNIT/5 ML UDCUP SWISH/SWAL SCH ×4 (10:19→20:59)
[2019-07-27] MEDS ORDERED: MAGNESIUM CITRATE 300 ML BOTTLE PO ONE (14:25)
[2019-07-27] MEDS: FAT EMULSION 20% 250 ML IV SCH (15:00)
[2019-07-27] MEDS: TRACE ELEMENTS (5) 1 ML, MULTIVITAMIN INJ 10 ML in AMINO ACIDS/DEXT/LYTES 4.25-5% 2,000 ML IV SCH (16:33)
[2019-07-27] MEDS: MONTELUKAST 10 MG TABLET PO SCH (20:59)
[2019-07-28] MEDS: INSULIN REGULAR 100 UNIT/ML SUBCUT SCH ×4 (01:31→18:14)
[2019-07-28] MEDS: CLINDAMYCIN INJ 300 MG in PREMIX 1 EACH IV SCH ×3 (02:30→18:10)
[2019-07-28] MEDS: ALBUTEROL/IPRATROPIUM 3 ML NEB RESP TX SCH ×6 (03:02→23:25)
[2019-07-28] MEDS: methylPREDNISolone SOD SUC 40 MG/1 ML VIAL IV SCH ×3 (05:25→20:24)
[2019-07-28 06:19] LABS: Basophils # 0.1 10*3/uL (0.0-0.2); Basophils % 0.2 % (0.0-0.8); Hematocrit 25.1 VOL% (42.0-52.0); Hemoglobin 8.6 GM/DL (14.0-18.0); Immature Granulocytes % 4.7 %; Lymphocytes # 0.3 10*3/uL (1.4-4.0); Lymphocytes % 1.1 % (21.2-54.2); Mean Corpuscular HGB Conc 34.3 GM/DL (32-36); Mean Corpuscular Volume 108.7 FL (87-102); Mean Platelet Volume 11.1 FL (9.6-12.0); Monocytes % 2.1 % (1.7-12.7); NRBC # 0.09 10*3/uL; Neutrophils % 91.9 % (38.7-73.9); Platelet Count 134 T/CUMM (130-400); Red Blood Count 2.31 MC/CUMM (3.8-5.5); Red Cell Distribution Width 19.8 % (9.3-17.3); White Blood Count 25.3 T/CUMM (4-12)
[2019-07-28 06:39] LABS: Band Neutrophils 1 % (0-10); Hypochromasia 1+; Lymphocytes 3 % (20-55); Macrocytosis Slight; Ovalocytes Slight; Platelet Estimate Normal; Segmented Neutrophils 95 % (50-85); Total Cells Counted 100
[2019-07-28 06:40] LABS: Bilirubin,Total 0.7 MG/DL (0.2-1.0); Calcium 9.3 MG/DL (8.5-10.1); Total Protein 4.6 G/DL (6.4-8.3)
[2019-07-28] MEDS: CHOLECALCIFEROL 1,000 UNIT TABLET PO SCH (09:50)
[2019-07-28] MEDS: METOPROLOL SUCCINATE XL 100 MG TABLET PO SCH (09:51)
[2019-07-28] MEDS: APIXABAN 5 MG TABLET PO SCH ×2 (09:51→20:26)
[2019-07-28] MEDS: GABAPENTIN 300 MG CAPSULE PO SCH ×3 (09:51→20:26)
[2019-07-28] MEDS: LEVOTHYROXINE 112 MCG TABLET PO SCH (09:51)
[2019-07-28] MEDS: DILTIAZEM CD 180 MG CAPSULE PO SCH (09:52)
[2019-07-28] MEDS: NYSTATIN 500,000 UNIT/5 ML UDCUP SWISH/SWAL SCH ×4 (09:52→20:25)
[2019-07-28] MEDS: POLYETHYLENE GLYCOL POWDER 17 GM PACK PO SCH ×2 (09:52→20:25)
[2019-07-28] MEDS: BENZONATATE 100 MG CAPSULE PO SCH ×3 (09:52→20:26)
[2019-07-28] MEDS ORDERED: SODIUM CHLORIDE 0.9% 1,000 ML IV PRN (09:52)
[2019-07-28] MEDS: LINACLOTIDE 145 MCG CAPSULE PO SCH (09:52)
[2019-07-28] MEDS: FLUTICASONE 50 MCG NASAL SPRAY 16 GM BOTTLE BOTH NARES SCH (10:40)
[2019-07-28] MEDS ORDERED: FUROSEMIDE 20 MG/2 ML VIAL IV ONE (12:00)
[2019-07-28] MEDS: FAT EMULSION 20% 250 ML IV SCH (13:35)
[2019-07-28] MEDS ORDERED: FUROSEMIDE 40 MG/4 ML VIAL ONE (18:04)
[2019-07-28] MEDS: TRACE ELEMENTS (5) 1 ML, MULTIVITAMIN INJ 10 ML in AMINO ACIDS/DEXT/LYTES 4.25-5% 2,000 ML IV SCH (18:14)
[2019-07-28 19:33] LABS: Hematocrit 31.7 VOL% (42.0-52.0); Hemoglobin 10.6 GM/DL (14.0-18.0)
[2019-07-28] MEDS: MONTELUKAST 10 MG TABLET PO SCH (20:26)
[2019-07-29] MEDS: INSULIN REGULAR 100 UNIT/ML SUBCUT SCH ×2 (01:28→05:22)
[2019-07-29] MEDS: CLINDAMYCIN INJ 300 MG in PREMIX 1 EACH IV SCH ×3 (02:35→17:35)
[2019-07-29] MEDS: ALBUTEROL/IPRATROPIUM 3 ML NEB RESP TX SCH ×6 (03:15→23:10)
[2019-07-29] MEDS: methylPREDNISolone SOD SUC 40 MG/1 ML VIAL IV SCH ×3 (03:35→20:53)
[2019-07-29 05:21] LABS: Basophils # 0.1 10*3/uL (0.0-0.2); Basophils % 0.3 % (0.0-0.8); Hemoglobin 9.5 GM/DL (14.0-18.0); Immature Granulocytes % 5.9 %; Immature Granulocytes Absolute 1.46 #; Lymphocytes # 0.3 10*3/uL (1.4-4.0); Lymphocytes % 1.1 % (21.2-54.2); Mean Corpuscular HGB Conc 32.8 GM/DL (32-36); Mean Corpuscular Volume 108.2 FL (87-102); Monocytes % 2.3 % (1.7-12.7); NRBC # 0.12 10*3/uL; Neutrophils % 90.4 % (38.7-73.9); Platelet Count 137 T/CUMM (130-400); Red Blood Count 2.68 MC/CUMM (3.8-5.5); Red Cell Distribution Width 19.8 % (9.3-17.3); White Blood Count 24.6 T/CUMM (4-12)
[2019-07-29 05:47] LABS: Band Neutrophils 3 % (0-10); Lymphocytes 2 % (20-55); Myelocytes 1 %; Nucleated Red Blood Cells 1 (0-5); Segmented Neutrophils 92 % (50-85); Total Cells Counted 100
[2019-07-29 05:48] LABS: Hypochromasia 1+; Macrocytosis Slight
[2019-07-29] MEDS: LEVOTHYROXINE 112 MCG TABLET PO SCH (07:52)
[2019-07-29] MEDS: LINACLOTIDE 145 MCG CAPSULE PO SCH (07:53)
[2019-07-29] MEDS ORDERED: FUROSEMIDE 20 MG/2 ML VIAL IV ONE (09:25)
[2019-07-29] MEDS: NYSTATIN 500,000 UNIT/5 ML UDCUP SWISH/SWAL SCH ×4 (09:53→20:55)
[2019-07-29] MEDS: METOPROLOL SUCCINATE XL 100 MG TABLET PO SCH (09:53)
[2019-07-29] MEDS: CHOLECALCIFEROL 1,000 UNIT TABLET PO SCH (09:53)
[2019-07-29] MEDS: BENZONATATE 100 MG CAPSULE PO SCH ×3 (09:53→20:55)
[2019-07-29] MEDS: DILTIAZEM CD 180 MG CAPSULE PO SCH (09:53)
[2019-07-29] MEDS: APIXABAN 5 MG TABLET PO SCH ×2 (09:53→20:55)
[2019-07-29] MEDS: GABAPENTIN 300 MG CAPSULE PO SCH ×3 (09:53→20:55)
[2019-07-29] MEDS: POLYETHYLENE GLYCOL POWDER 17 GM PACK PO SCH ×2 (09:54→20:54)
[2019-07-29] MEDS: FLUTICASONE 50 MCG NASAL SPRAY 16 GM BOTTLE BOTH NARES SCH (09:56)
[2019-07-29 10:08] LABS: Osmolality,Calculated 287.1 MOS/KG (273-304)
[2019-07-29 10:10] LABS: Folate > 24.0 NG/ML (5.4-24.0); Vitamin B12 1365 PG/ML (211-911)
[2019-07-29] MEDS: LEVOFLOXACIN INJ 250 MG in PREMIX 1 EACH IV SCH (10:34)
[2019-07-29] MEDS: MONTELUKAST 10 MG TABLET PO SCH (20:55)
[2019-07-30] MEDS: CLINDAMYCIN INJ 300 MG in PREMIX 1 EACH IV SCH ×3 (01:10→17:42)
[2019-07-30] MEDS: ALBUTEROL/IPRATROPIUM 3 ML NEB RESP TX SCH ×4 (03:00→20:45)
[2019-07-30] MEDS: methylPREDNISolone SOD SUC 40 MG/1 ML VIAL IV SCH ×2 (03:45→17:41)
[2019-07-30 06:25] LABS: Basophils # 0.1 10*3/uL (0.0-0.2); Basophils % 0.2 % (0.0-0.8); Hematocrit 30.8 VOL% (42.0-52.0); Hemoglobin 10.2 GM/DL (14.0-18.0); Immature Granulocytes % 5.7 %; Lymphocytes # 0.3 10*3/uL (1.4-4.0); Lymphocytes % 1.1 % (21.2-54.2); Mean Corpuscular HGB Conc 33.1 GM/DL (32-36); Mean Corpuscular Volume 107.7 FL (87-102); Mean Platelet Volume 10.7 FL (9.6-12.0); NRBC # 0.06 10*3/uL; Platelet Count 138 T/CUMM (130-400); Red Blood Count 2.86 MC/CUMM (3.8-5.5); Red Cell Distribution Width 19.3 % (9.3-17.3); White Blood Count 28.1 T/CUMM (4-12)
[2019-07-30 06:38] LABS: Calcium 9.2 MG/DL (8.5-10.1); Osmolality,Calculated 284.2 MOS/KG (273-304)
[2019-07-30 06:51] LABS: Band Neutrophils 2 % (0-10); Hypochromasia 1+; Lymphocytes 1 % (20-55); Segmented Neutrophils 95 % (50-85); Total Cells Counted 100
[2019-07-30 06:52] LABS: Macrocytosis Slight; Ovalocytes Slight
[2019-07-30] MEDS: APIXABAN 5 MG TABLET PO SCH ×2 (09:22→21:26)
[2019-07-30] MEDS: DILTIAZEM CD 180 MG CAPSULE PO SCH (09:23)
[2019-07-30] MEDS: NYSTATIN 500,000 UNIT/5 ML UDCUP SWISH/SWAL SCH ×4 (09:23→21:25)
[2019-07-30] MEDS: BENZONATATE 100 MG CAPSULE PO SCH ×3 (09:23→21:25)
[2019-07-30] MEDS: CHOLECALCIFEROL 1,000 UNIT TABLET PO SCH (09:24)
[2019-07-30] MEDS: GABAPENTIN 300 MG CAPSULE PO SCH ×3 (09:25→21:25)
[2019-07-30] MEDS: LEVOTHYROXINE 112 MCG TABLET PO SCH (09:25)
[2019-07-30] MEDS: LINACLOTIDE 145 MCG CAPSULE PO SCH (09:25)
[2019-07-30] MEDS: FLUTICASONE 50 MCG NASAL SPRAY 16 GM BOTTLE BOTH NARES SCH (09:32)
[2019-07-30] MEDS: POLYETHYLENE GLYCOL POWDER 17 GM PACK PO SCH ×2 (09:32→21:25)
[2019-07-30] MEDS: METOPROLOL SUCCINATE XL 100 MG TABLET PO SCH (10:55)
[2019-07-30] MEDS: LEVOFLOXACIN INJ 250 MG in PREMIX 1 EACH IV SCH (12:25)
[2019-07-30 17:06] LABS: Apearance,Urine CLEAR (Clear); Bilirubin,Urine Negative (Negative); Blood, Urine Moderate mg/dL (Negative); Glucose,Urine (UA) Negative (Negative); Ketones,Urine Negative (Negative); Mucus,Urine Occasional /LPF (Occasional); Nitrite,Urine Negative (Negative); Protein,Urine Negative; RBC,Urine 44 /HPF (0-4); Urine Color Yellow (Yellow); Urine Specific Gravity 1.027 (1.001-1.035); Urine Urobilinogen < 2.0 EU/DL (0.2-1.0); WBC,Urine 9 /HPF (0-6)
[2019-07-30] MEDS: MONTELUKAST 10 MG TABLET PO SCH (21:25)
[2019-07-31] MEDS: ALBUTEROL/IPRATROPIUM 3 ML NEB RESP TX SCH ×4 (00:35→19:25)
[2019-07-31] MEDS: CLINDAMYCIN INJ 300 MG in PREMIX 1 EACH IV SCH ×3 (04:35→17:46)
[2019-07-31 05:28] LABS: Basophils # 0.1 10*3/uL (0.0-0.2); Basophils % 0.3 % (0.0-0.8); Hematocrit 30.3 VOL% (42.0-52.0); Hemoglobin 10.1 GM/DL (14.0-18.0); Immature Granulocytes % 5.1 %; Immature Granulocytes Absolute 1.21 #; Lymphocytes # 0.2 10*3/uL (1.4-4.0); Lymphocytes % 0.7 % (21.2-54.2); Mean Corpuscular HGB Conc 33.3 GM/DL (32-36); Mean Corpuscular Volume 106.7 FL (87-102); Mean Platelet Volume 10.9 FL (9.6-12.0); Monocytes % 3.2 % (1.7-12.7); NRBC # 0.06 10*3/uL; Neutrophils % 90.7 % (38.7-73.9); Platelet Count 129 T/CUMM (130-400); Red Blood Count 2.84 MC/CUMM (3.8-5.5); Red Cell Distribution Width 19.1 % (9.3-17.3); White Blood Count 23.7 T/CUMM (4-12)
[2019-07-31] MEDS: methylPREDNISolone SOD SUC 40 MG/1 ML VIAL IV SCH ×2 (05:49→17:46)
[2019-07-31 05:51] LABS: Band Neutrophils 4 % (0-10); Hypochromasia 1+; Lymphocytes 2 % (20-55); Macrocytosis 1+; Nucleated Red Blood Cells 2 (0-5); Segmented Neutrophils 90 % (50-85); Tear Drop Cells Slight; Total Cells Counted 100
[2019-07-31 05:52] LABS: Ovalocytes Few; Platelet Estimate Adequate
[2019-07-31 05:54] LABS: Calcium 9.3 MG/DL (8.5-10.1); Osmolality,Calculated 280.4 MOS/KG (273-304)
[2019-07-31] MEDS: CHOLECALCIFEROL 1,000 UNIT TABLET PO SCH (09:10)
[2019-07-31] MEDS: GABAPENTIN 300 MG CAPSULE PO SCH ×3 (09:10→20:53)
[2019-07-31] MEDS: BENZONATATE 100 MG CAPSULE PO SCH ×3 (09:10→20:53)
[2019-07-31] MEDS: NYSTATIN 500,000 UNIT/5 ML UDCUP SWISH/SWAL SCH ×4 (09:10→20:53)
[2019-07-31] MEDS: POLYETHYLENE GLYCOL POWDER 17 GM PACK PO SCH ×2 (09:10→20:53)
[2019-07-31] MEDS: METOPROLOL SUCCINATE XL 100 MG TABLET PO SCH (09:10)
[2019-07-31] MEDS: LINACLOTIDE 145 MCG CAPSULE PO SCH (09:11)
[2019-07-31] MEDS: FLUTICASONE 50 MCG NASAL SPRAY 16 GM BOTTLE BOTH NARES SCH (09:11)
[2019-07-31] MEDS: DILTIAZEM CD 180 MG CAPSULE PO SCH (09:11)
[2019-07-31] MEDS: LEVOTHYROXINE 112 MCG TABLET PO SCH (09:11)
[2019-07-31] MEDS: LEVOFLOXACIN INJ 250 MG in PREMIX 1 EACH IV SCH (10:15)
[2019-07-31] MEDS: MONTELUKAST 10 MG TABLET PO SCH (20:53)
[2019-08-01] MEDS: ALBUTEROL/IPRATROPIUM 3 ML NEB RESP TX SCH ×4 (01:02→19:19)
[2019-08-01] MEDS: CLINDAMYCIN INJ 300 MG in PREMIX 1 EACH IV SCH ×3 (01:15→21:14)
[2019-08-01] MEDS: methylPREDNISolone SOD SUC 40 MG/1 ML VIAL IV SCH ×2 (05:32→21:15)
[2019-08-01] MEDS: LEVOTHYROXINE 112 MCG TABLET PO SCH (06:30)
[2019-08-01 09:05] LABS: Basophils # 0.1 10*3/uL (0.0-0.2); Basophils % 0.4 % (0.0-0.8); Hematocrit 34.1 VOL% (42.0-52.0); Hemoglobin 11.1 GM/DL (14.0-18.0); Immature Granulocytes % 4.7 %; Immature Granulocytes Absolute 1.21 #; Lymphocytes # 0.2 10*3/uL (1.4-4.0); Lymphocytes % 0.9 % (21.2-54.2); Mean Corpuscular HGB Conc 32.6 GM/DL (32-36); Monocytes % 2.6 % (1.7-12.7); NRBC # 0.16 10*3/uL; Neutrophils % 91.4 % (38.7-73.9); Platelet Count 158 T/CUMM (130-400); Red Cell Distribution Width 19.4 % (9.3-17.3); White Blood Count 25.6 T/CUMM (4-12)
[2019-08-01 09:25] LABS: Band Neutrophils 1 % (0-10); Lymphocytes 4 % (20-55); Segmented Neutrophils 93 % (50-85); Total Cells Counted 100
[2019-08-01 09:26] LABS: Hypochromasia 1+; Macrocytosis Slight; Platelet Estimate Adequate; Polychromasia Slight
[2019-08-01] MEDS: CHOLECALCIFEROL 1,000 UNIT TABLET PO SCH (09:39)
[2019-08-01] MEDS: POLYETHYLENE GLYCOL POWDER 17 GM PACK PO SCH ×2 (09:39→21:15)
[2019-08-01] MEDS: NYSTATIN 500,000 UNIT/5 ML UDCUP SWISH/SWAL SCH ×4 (09:39→21:15)
[2019-08-01] MEDS: GABAPENTIN 300 MG CAPSULE PO SCH ×3 (09:39→21:15)
[2019-08-01] MEDS: METOPROLOL SUCCINATE XL 100 MG TABLET PO SCH (09:40)
[2019-08-01] MEDS: DILTIAZEM CD 180 MG CAPSULE PO SCH (09:40)
[2019-08-01] MEDS: BENZONATATE 100 MG CAPSULE PO SCH ×3 (09:41→21:15)
[2019-08-01] MEDS: LINACLOTIDE 145 MCG CAPSULE PO SCH (09:41)
[2019-08-01] MEDS: FLUTICASONE 50 MCG NASAL SPRAY 16 GM BOTTLE BOTH NARES SCH (09:42)
[2019-08-01] MEDS: APIXABAN 5 MG TABLET PO SCH ×2 (18:09→18:10)
[2019-08-01] MEDS: LEVOFLOXACIN INJ 250 MG in PREMIX 1 EACH IV SCH (18:23)
[2019-08-01] MEDS: MONTELUKAST 10 MG TABLET PO SCH (21:15)
[2019-08-02] MEDS: ALBUTEROL/IPRATROPIUM 3 ML NEB RESP TX SCH ×4 (00:09→20:21)
[2019-08-02 05:25] LABS: Basophils % 0.2 % (0.0-0.8); Hematocrit 32.4 VOL% (42.0-52.0); Hemoglobin 10.5 GM/DL (14.0-18.0); Immature Granulocytes % 3.4 %; Immature Granulocytes Absolute 0.65 #; Lymphocytes # 0.2 10*3/uL (1.4-4.0); Lymphocytes % 0.8 % (21.2-54.2); Mean Corpuscular HGB Conc 32.4 GM/DL (32-36); Mean Corpuscular Volume 111.3 FL (87-102); Mean Platelet Volume 11.5 FL (9.6-12.0); Monocytes % 1.9 % (1.7-12.7); NRBC # 0.11 10*3/uL; Neutrophils % 93.7 % (38.7-73.9); Platelet Count 144 T/CUMM (130-400); Red Blood Count 2.91 MC/CUMM (3.8-5.5); Red Cell Distribution Width 19.6 % (9.3-17.3)
[2019-08-02] MEDS: methylPREDNISolone SOD SUC 40 MG/1 ML VIAL IV SCH ×2 (05:31→18:42)
[2019-08-02 05:52] LABS: Calcium 9.5 MG/DL (8.5-10.1)
[2019-08-02] MEDS: LEVOTHYROXINE 112 MCG TABLET PO SCH (06:01)
[2019-08-02 07:47] LABS: Band Neutrophils 5 % (0-10); Lymphocytes 4 % (20-55); Metamyelocytes 3 %; Reactive Lymphocytes Few; Segmented Neutrophils 88 % (50-85); Total Cells Counted 100
[2019-08-02 07:48] LABS: Macrocytosis 1+; Platelet Estimate Adequate; Polychromasia Few
[2019-08-02] MEDS: LINACLOTIDE 145 MCG CAPSULE PO SCH (08:51)
[2019-08-02] MEDS: CHOLECALCIFEROL 1,000 UNIT TABLET PO SCH (10:13)
[2019-08-02] MEDS: BENZONATATE 100 MG CAPSULE PO SCH ×3 (10:14→21:32)
[2019-08-02] MEDS: FLUTICASONE 50 MCG NASAL SPRAY 16 GM BOTTLE BOTH NARES SCH (10:14)
[2019-08-02] MEDS: POLYETHYLENE GLYCOL POWDER 17 GM PACK PO SCH ×2 (10:14→21:33)
[2019-08-02] MEDS: NYSTATIN 500,000 UNIT/5 ML UDCUP SWISH/SWAL SCH ×4 (10:14→21:33)
[2019-08-02] MEDS: GABAPENTIN 300 MG CAPSULE PO SCH ×3 (10:14→21:32)
[2019-08-02] MEDS: METOPROLOL SUCCINATE XL 100 MG TABLET PO SCH (10:33)
[2019-08-02] MEDS: DILTIAZEM CD 180 MG CAPSULE PO SCH (10:33)
[2019-08-02] MEDS: LEVOFLOXACIN INJ 250 MG in PREMIX 1 EACH IV SCH (10:34)
[2019-08-02] MEDS: MONTELUKAST 10 MG TABLET PO SCH (21:32)
[2019-08-03] MEDS: ALBUTEROL/IPRATROPIUM 3 ML NEB RESP TX SCH ×4 (00:22→20:24)
[2019-08-03 05:34] LABS: Basophils % 0.2 % (0.0-0.8); Hematocrit 32.1 VOL% (42.0-52.0); Hemoglobin 10.6 GM/DL (14.0-18.0); Immature Granulocytes % 2.5 %; Immature Granulocytes Absolute 0.54 #; Lymphocytes # 0.2 10*3/uL (1.4-4.0); Lymphocytes % 1.1 % (21.2-54.2); Mean Corpuscular Volume 110.3 FL (87-102); Mean Platelet Volume 11.3 FL (9.6-12.0); Monocytes % 2.2 % (1.7-12.7); Platelet Count 145 T/CUMM (130-400); Red Blood Count 2.91 MC/CUMM (3.8-5.5); Red Cell Distribution Width 19.5 % (9.3-17.3); White Blood Count 21.8 T/CUMM (4-12)
[2019-08-03 05:57] LABS: Calcium 9.3 MG/DL (8.5-10.1); Osmolality,Calculated 300.4 MOS/KG (273-304)
[2019-08-03] MEDS: LEVOTHYROXINE 112 MCG TABLET PO SCH (06:00)
[2019-08-03] MEDS: methylPREDNISolone SOD SUC 40 MG/1 ML VIAL IV SCH ×2 (06:00→17:01)
[2019-08-03 06:50] LABS: Anisocytosis 1+; Band Neutrophils 2 % (0-10); Lymphocytes 1 % (20-55); Nucleated Red Blood Cells 1 (0-5); Segmented Neutrophils 95 % (50-85); Total Cells Counted 100
[2019-08-03 06:51] LABS: Macrocytosis 1+; Ovalocytes 1+; Platelet Estimate Normal
[2019-08-03] MEDS: NYSTATIN 500,000 UNIT/5 ML UDCUP SWISH/SWAL SCH ×4 (09:56→20:09)
[2019-08-03] MEDS: GABAPENTIN 300 MG CAPSULE PO SCH ×3 (09:56→20:09)
[2019-08-03] MEDS: CHOLECALCIFEROL 1,000 UNIT TABLET PO SCH (09:56)
[2019-08-03] MEDS: POLYETHYLENE GLYCOL POWDER 17 GM PACK PO SCH ×2 (09:56→20:09)
[2019-08-03] MEDS: LINACLOTIDE 145 MCG CAPSULE PO SCH (09:56)
[2019-08-03] MEDS: BENZONATATE 100 MG CAPSULE PO SCH ×3 (09:57→20:09)
[2019-08-03] MEDS: METOPROLOL SUCCINATE XL 100 MG TABLET PO SCH (09:57)
[2019-08-03] MEDS: FLUTICASONE 50 MCG NASAL SPRAY 16 GM BOTTLE BOTH NARES SCH (09:57)
[2019-08-03] MEDS: DILTIAZEM CD 180 MG CAPSULE PO SCH (09:57)
[2019-08-03] MEDS ORDERED: MEROPENEM 500 MG in SODIUM CHLORIDE 0.9% 100 ML IV ONE (10:00)
[2019-08-03] MEDS: MEROPENEM 500 MG in SODIUM CHLORIDE 0.9% 100 ML IV SCH ×2 (17:01→22:41)
[2019-08-03] MEDS: MONTELUKAST 10 MG TABLET PO SCH (20:09)
[2019-08-04] MEDS: ALBUTEROL/IPRATROPIUM 3 ML NEB RESP TX SCH ×3 (00:46→13:21)
[2019-08-04 04:27] LABS: Basophils % 0.2 % (0.0-0.8); Hematocrit 29.2 VOL% (42.0-52.0); Hemoglobin 9.8 GM/DL (14.0-18.0); Immature Granulocytes % 2.2 %; Immature Granulocytes Absolute 0.38 #; Lymphocytes # 0.2 10*3/uL (1.4-4.0); Lymphocytes % 0.9 % (21.2-54.2); Mean Corpuscular HGB Conc 33.6 GM/DL (32-36); Mean Corpuscular Volume 107.4 FL (87-102); Mean Platelet Volume 10.8 FL (9.6-12.0); Monocytes % 1.7 % (1.7-12.7); NRBC # 0.07 10*3/uL; Platelet Count 115 T/CUMM (130-400); Red Blood Count 2.72 MC/CUMM (3.8-5.5); Red Cell Distribution Width 19.1 % (9.3-17.3); White Blood Count 17.1 T/CUMM (4-12)
[2019-08-04 04:37] LABS: Calcium 9.2 MG/DL (8.5-10.1); Osmolality,Calculated 294.7 MOS/KG (273-304)
[2019-08-04 04:52] LABS: Band Neutrophils 2 % (0-10); Hypochromasia 1+; Lymphocytes 1 % (20-55); Macrocytosis 1+; Nucleated Red Blood Cells 1 (0-5); Polychromasia Slight; Segmented Neutrophils 95 % (50-85); Total Cells Counted 100
[2019-08-04 04:53] LABS: Ovalocytes Slight; Platelet Estimate Decreased; Tear Drop Cells Slight
[2019-08-04] MEDS: methylPREDNISolone SOD SUC 40 MG/1 ML VIAL IV SCH (05:42)
[2019-08-04] MEDS: MEROPENEM 500 MG in SODIUM CHLORIDE 0.9% 100 ML IV SCH ×3 (05:42→15:40)
[2019-08-04] MEDS: LEVOTHYROXINE 112 MCG TABLET PO SCH ×2 (05:43→07:24)
[2019-08-04] MEDS ORDERED: POLYETHYLENE GLYCOL POWDER 17 GM PACK PO SCH (09:00)
[2019-08-04] MEDS: LINACLOTIDE 145 MCG CAPSULE PO SCH (09:16)
[2019-08-04] MEDS: CHOLECALCIFEROL 1,000 UNIT TABLET PO SCH (09:18)
[2019-08-04] MEDS: FLUTICASONE 50 MCG NASAL SPRAY 16 GM BOTTLE BOTH NARES SCH (09:19)
[2019-08-04] MEDS: GABAPENTIN 300 MG CAPSULE PO SCH ×2 (09:19→15:40)
[2019-08-04] MEDS: METOPROLOL SUCCINATE XL 100 MG TABLET PO SCH (09:19)
[2019-08-04] MEDS: DILTIAZEM CD 180 MG CAPSULE PO SCH (09:19)
[2019-08-04] MEDS: BENZONATATE 100 MG CAPSULE PO SCH ×2 (09:19→15:40)
[2019-08-04] MEDS: NYSTATIN 500,000 UNIT/5 ML UDCUP SWISH/SWAL SCH ×2 (09:19→12:22)
[2019-08-04 16:59] VITALS: BP 97/47
== END 2019-08-04 17:23 | disposition swing bed (61) | DRG 189 ==
LOC: EDUNIT# → EDBD → N.ED 10:15 → N.EDINP 13:30 → SUATTDRO 13:30 → N.EDINP 16:24 → N.5E 17:10
PROVIDERS: ADMIT Family Medicine; ATTEND Internal Medicine

== ENCOUNTER 2019-08-11 07:17 | Inpatient (IN) ==
[2019-08-11] MEDS ORDERED: LEVOFLOXACIN INJ 500 MG in PREMIX 1 EACH IV STA (07:59)
[2019-08-11] MEDS ORDERED: SODIUM CHLORIDE 0.9% 1,000 ML IV STA ×2 (07:59→08:07)
[2019-08-11] MEDS ORDERED: CLINDAMYCIN INJ 600 MG in PREMIX 1 EACH IV STA (07:59)
[2019-08-11 08:26] LABS: Apearance,Urine CLEAR (Clear); Bilirubin,Urine Negative (Negative); Blood, Urine Negative (Negative); Glucose,Urine (UA) Negative (Negative); Granular Casts,Urine 3 /LPF (0-1); Hyaline Casts,Urine 11 /LPF (0-3); Ketones,Urine Negative (Negative); Mucus,Urine Occasional /LPF (Occasional); Nitrite,Urine Negative (Negative); Protein,Urine 30 MG/DL; RBC,Urine 3 /HPF (0-4); Urine Color Yellow (Yellow); Urine Specific Gravity 1.036 (1.001-1.035); WBC,Urine 1 /HPF (0-6)
[2019-08-11 08:32] LABS: Albumin 1.7 G/DL (3.4-5.0); Calcium 9.3 MG/DL (8.5-10.1); Osmolality,Calculated 294.5 MOS/KG (273-304); Total Protein 5.3 G/DL (6.4-8.3)
[2019-08-11] MEDS ORDERED: PIPERACILLIN/TAZOBACTAM 3,375 MG VIAL IV ONE (08:54)
[2019-08-11 09:12] LABS: INR 0.9; PT Patient Result 10.1 SECS (9.6-12.2); Partial Thromboplastin Time 25.7 SECS (20.8-36.0)
[2019-08-11] MEDS ORDERED: ALBUTEROL/IPRATROPIUM 3 ML NEB RESP TX PRN (10:28)
[2019-08-11] MEDS ORDERED: ACETAMINOPHEN 325 MG TABLET PO PRN (10:28)
[2019-08-11] MEDS ORDERED: ONDANSETRON 4 MG/2 ML VIAL IV PRN (10:28)
[2019-08-11] MEDS ORDERED: KETOROLAC 15 MG/1 ML VIAL IV PRN (10:28)
[2019-08-11] MEDS ORDERED: MORPHINE 4 MG/1 ML VIAL IV PRN ×2 (10:28)
[2019-08-11 10:29] LABS: Basophils % 0.2 % (0.0-0.8); Hematocrit 27.5 VOL% (42.0-52.0); Hemoglobin 8.7 GM/DL (14.0-18.0); Immature Granulocytes % 1.1 %; Immature Granulocytes Absolute 0.07 #; Lymphocytes # 0.1 10*3/uL (1.4-4.0); Mean Corpuscular HGB Conc 31.6 GM/DL (32-36); Mean Corpuscular Volume 113.2 FL (87-102); Mean Platelet Volume 11.9 FL (9.6-12.0); Monocytes % 2.3 % (1.7-12.7); NRBC # 0.04 10*3/uL; Neutrophils % 94.4 % (38.7-73.9); Red Blood Count 2.43 MC/CUMM (3.8-5.5); Red Cell Distribution Width 19.5 % (9.3-17.3); White Blood Count 6.6 T/CUMM (4-12)
[2019-08-11 10:31] LABS: Platelet Count 58 T/CUMM (130-400)
[2019-08-11] MEDS ORDERED: ALBUTEROL 2.5 MG/3 ML NEB RESP TX PRN (10:33)
[2019-08-11 10:50] LABS: Band Neutrophils 4 % (0-10); Hypochromasia 1+; Lymphocytes 1 % (20-55); Macrocytosis Slight; Ovalocytes Slight; Platelet Estimate Decreased; Segmented Neutrophils 91 % (50-85); Total Cells Counted 100
[2019-08-11] MEDS ORDERED: SODIUM CHLORIDE 0.9% 4,650 ML IV ONE (11:24)
[2019-08-11] MEDS: LACTATED RINGERS 1,000 ML IV SCH ×2 (13:25→21:44)
[2019-08-11] MEDS: ALBUTEROL/IPRATROPIUM 3 ML NEB RESP TX SCH ×2 (13:32→18:30)
[2019-08-11 14:09] LABS: Amorphous Crystals,Urine Occasional /HPF (Few); Apearance,Urine CLEAR (Clear); Bilirubin,Urine Negative (Negative); Blood, Urine Small mg/dL (Negative); Glucose,Urine (UA) Negative (Negative); Ketones,Urine Negative (Negative); Nitrite,Urine Negative (Negative); Protein,Urine 30 MG/DL; RBC,Urine 21 /HPF (0-4); Squamous Epithelial Cell,Urine Occasional /HPF (0-10); Urine Color Yellow (Yellow); Urine Specific Gravity 1.046 (1.001-1.035); Urine Urobilinogen < 2.0 EU/DL (0.2-1.0)
[2019-08-11] MEDS: GABAPENTIN 600 MG TABLET PO SCH ×2 (14:10→21:38)
[2019-08-11] MEDS: ERTAPENEM 1,000 MG in SODIUM CHLORIDE 0.9% 100 ML IV SCH (14:32)
[2019-08-11] MEDS ORDERED: LACTATED RINGERS 500 ML IV ONE ×2 (14:43→15:46)
[2019-08-11] MEDS ORDERED: SODIUM CHLORIDE 0.9% 1,000 ML IV PRN (15:47)
[2019-08-11] MEDS: MENTHOL/ZINC OXIDE OINT 71 GM JAR TOP SCH ×2 (17:24→21:39)
[2019-08-11 20:11] LABS: Basophils % 0.7 % (0.0-0.8); Eosinophils % 0.3 % (0.00-10.9); Hematocrit 35.7 VOL% (42.0-52.0); Hemoglobin 11.4 GM/DL (14.0-18.0); Immature Granulocytes % 1.5 %; Immature Granulocytes Absolute 0.09 #; Lymphocytes # 0.1 10*3/uL (1.4-4.0); Lymphocytes % 2.3 % (21.2-54.2); Mean Corpuscular HGB Conc 31.9 GM/DL (32-36); Mean Corpuscular Volume 110.9 FL (87-102); Mean Platelet Volume 11.8 FL (9.6-12.0); Monocytes % 2.1 % (1.7-12.7); NRBC # 0.04 10*3/uL; Neutrophils % 93.1 % (38.7-73.9); Platelet Count 44 T/CUMM (130-400); Red Blood Count 3.22 MC/CUMM (3.8-5.5); Red Cell Distribution Width 21.4 % (9.3-17.3); White Blood Count 6.1 T/CUMM (4-12)
[2019-08-11] MEDS ORDERED: MONTELUKAST 10 MG TABLET PO SCH (21:00)
[2019-08-11 21:09] LABS: Lymphocytes 2 % (20-55); Segmented Neutrophils 95 % (50-85); Total Cells Counted 100
[2019-08-12] MEDS: ALBUTEROL/IPRATROPIUM 3 ML NEB RESP TX SCH ×3 (01:19→13:21)
[2019-08-12] MEDS: LACTATED RINGERS 1,000 ML IV SCH (05:33)
[2019-08-12 05:39] LABS: Albumin 1.4 G/DL (3.4-5.0); Calcium 9.1 MG/DL (8.5-10.1); Osmolality,Calculated 286.5 MOS/KG (273-304); Total Protein 4.8 G/DL (6.4-8.3)
[2019-08-12] MEDS ORDERED: LEVOTHYROXINE 100 MCG TABLET PO SCH (06:00)
[2019-08-12] MEDS ORDERED: LEVOTHYROXINE 25 MCG TABLET PO SCH (06:00)
[2019-08-12] MEDS ORDERED: DEXTROSE 10% 250 ML BAG IV ONE (06:47)
[2019-08-12] MEDS ORDERED: GLUCAGON 1 MG VIAL IM PRN (07:00)
[2019-08-12] MEDS ORDERED: DEXTROSE 10% 250 ML BAG IV PRN (07:00)
[2019-08-12] MEDS ORDERED: DEXTROSE 5% LACTATED RINGERS 1,000 ML IV SCH (07:30)
[2019-08-12 07:32] LABS: Basophils % 0.2 % (0.0-0.8); Eosinophils % 0.8 % (0.00-10.9); Hematocrit 31.7 VOL% (42.0-52.0); Hemoglobin 10.2 GM/DL (14.0-18.0); Immature Granulocytes % 1.1 %; Immature Granulocytes Absolute 0.06 #; Lymphocytes # 0.1 10*3/uL (1.4-4.0); Lymphocytes % 2.3 % (21.2-54.2); Mean Corpuscular HGB Conc 32.2 GM/DL (32-36); Mean Corpuscular Volume 107.8 FL (87-102); Mean Platelet Volume 12.8 FL (9.6-12.0); Monocytes % 1.9 % (1.7-12.7); NRBC # 0.05 10*3/uL; Neutrophils % 93.7 % (38.7-73.9); Red Blood Count 2.94 MC/CUMM (3.8-5.5); Red Cell Distribution Width 21.7 % (9.3-17.3); White Blood Count 5.3 T/CUMM (4-12)
[2019-08-12 07:33] LABS: Platelet Count 50 T/CUMM (130-400)
[2019-08-12 08:14] LABS: Anisocytosis 2+; Band Neutrophils 33 % (0-10); Eosinophils 2 % (0-10); Lymphocytes 3 % (20-55); Nucleated Red Blood Cells 1 (0-5); Platelet Estimate Decreased; Poikilocytosis 1+; Segmented Neutrophils 61 % (50-85); Tear Drop Cells Few; Total Cells Counted 100
[2019-08-12 08:15] LABS: Macrocytosis 2+
[2019-08-12] MEDS ORDERED: PANTOPRAZOLE 40 MG VIAL IV SCH (09:00)
[2019-08-12] MEDS ORDERED: FLUTICASONE 50 MCG NASAL SPRAY 16 GM BOTTLE BOTH NARES SCH (09:00)
[2019-08-12] MEDS ORDERED: METOPROLOL SUCCINATE XL 100 MG TABLET PO SCH (09:00)
[2019-08-12] MEDS ORDERED: DILTIAZEM CD 120 MG CAPSULE PO SCH (09:00)
[2019-08-12] MEDS ORDERED: DIGOXIN 0.5 MG/2 ML AMP IV ONE (09:21)
[2019-08-12] MEDS: GABAPENTIN 600 MG TABLET PO SCH ×2 (09:25→15:09)
[2019-08-12] MEDS: MENTHOL/ZINC OXIDE OINT 71 GM JAR TOP SCH (09:28)
[2019-08-12] MEDS ORDERED: LORazepam 2 MG/1 ML VIAL IV PRN (14:51)
[2019-08-12] MEDS: ERTAPENEM 1,000 MG in SODIUM CHLORIDE 0.9% 100 ML IV SCH ×2 (15:08→23:04)
[2019-08-12] MEDS ORDERED: ATROPINE 1 % OPH SOLN 5 ML BOTTLE SL PRN (17:02)
[2019-08-13 05:32] LABS: Basophils % 0.3 % (0.0-0.8); Eosinophils # 0.1 10*3/uL (0.0-0.87); Eosinophils % 1.8 % (0.00-10.9); Hematocrit 28.2 VOL% (42.0-52.0); Immature Granulocytes % 1.3 %; Immature Granulocytes Absolute 0.05 #; Lymphocytes # 0.1 10*3/uL (1.4-4.0); Lymphocytes % 2.5 % (21.2-54.2); Mean Corpuscular HGB Conc 31.9 GM/DL (32-36); Mean Corpuscular Volume 108.5 FL (87-102); Mean Platelet Volume 12.2 FL (9.6-12.0); Monocytes % 1.5 % (1.7-12.7); NRBC # 0.03 10*3/uL; Neutrophils % 92.6 % (38.7-73.9); Platelet Count 44 T/CUMM (130-400); Red Cell Distribution Width 21.3 % (9.3-17.3)
[2019-08-13] MEDS: MORPHINE 4 MG/1 ML VIAL IV PRN ×7 (05:51→23:47)
[2019-08-13 05:57] LABS: Calcium 9.2 MG/DL (8.5-10.1)
[2019-08-13 06:06] LABS: Band Neutrophils 10 % (0-10); Eosinophils 1 % (0-10); Hypochromasia 1+; Lymphocytes 2 % (20-55); Macrocytosis 1+; Nucleated Red Blood Cells 1 (0-5); Segmented Neutrophils 86 % (50-85); Total Cells Counted 100
[2019-08-13 06:07] LABS: Ovalocytes Slight; Platelet Estimate Decreased; Tear Drop Cells Slight
[2019-08-13] MEDS: ERTAPENEM 1,000 MG in SODIUM CHLORIDE 0.9% 100 ML IV SCH (21:54)
[2019-08-13 22:54] VITALS: BP 101/68
[2019-08-14] MEDS: MORPHINE 4 MG/1 ML VIAL IV PRN (01:03)
== END 2019-08-14 02:37 | disposition expired | DRG 393 ==
LOC: EDUNIT# → EDBD → N.ED 07:17 → N.EDINP 10:28 → N.CC 11:24 → N.4E 08-12 16:30
PROVIDERS: ADMIT Surgery; ATTEND Surgery